=== PATIENT | female | born 1945 | race Caucasian/White ===

== ENCOUNTER 2020-04-16 21:51 | Inpatient (IN) | payer MEDICARE, OTHER ==
[~2020-04-16] VITALS: Ht 142.2 cm; Wt 40.4 kg
[~2020-04-16 21:51] MED LIST: ACETAMINOPHEN 650 MG/SUPP.RECT RC PRN
--- NOTE | 2020-04-16 22:03 | NUR ---
PATIENT INSURANCE CLERK AT BEDSIDE FOR LABS.
[2020-04-16 22:11] LABS: BASOPHILS # (AUTO) 0.1 /CMM (0.0-0.2); BASOPHILS % (AUTO) 0.5 % (0.0-2.0); HEMATOCRIT 37 % (33-45); HEMOGLOBIN 11.4 g/dL (11.5-14.8); LYMPHOCYTES # (AUTO) 0.8 /CMM (0.8-4.8); LYMPHOCYTES % (AUTO) 7.2 % (20.0-44.0); MEAN CORPUSCULAR HGB CONC 31 g/dl (31.0-36.0); MEAN CORPUSCULAR VOLUME 92 fL (82-100); MONOCYTES # (AUTO) 0.4 /CMM (0.1-1.30); MONOCYTES % (AUTO) 3.5 % (2.0-12.0); NEUTROPHILS # (AUTO) 9.5 /CMM (1.8-8.9); NEUTROPHILS % (AUTO) 88.8 % (43.0-81.0); PLATELET COUNT (AUTO) 237 /CMM (150-450); WHITE BLOOD COUNT (AUTO) 10.7 K/uL (4.3-11.0)
--- NOTE | 2020-04-16 22:18 | NUR ---
salome kent [phone]
--- NOTE | 2020-04-16 22:24 | NUR ---
PROSPER FROM SNF TO ER BED 5. AAOX0. EYES OPEN. RESPONDS TO TACTILE STIMULI BY STROKING SOLE OF THE FOOT. BED BOUND. BROUGHT IN FOR ALTERED MENTAL STATUS. 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 PT DOES NOT RESPOND WHEN BEING TALKED TO. VS ARE STABLE. RECTAL TEMP NOTED AT 99.4. URINE COLLECTED VIA CATH AND NOTED PYURIA, VERY SCANT IN AMOUNT. PT NOTED YIELD ANALYST SHUNT ON HER R HEAD. MD WAS AT THE BEDSIDE. ORDERS RECEIVED, NOTED AND CARRIED OUT. IV LINE ESTABLISHED ON L AC 20G. BLOOD DRAWN AND GIVEN TO TREATMENT SPECIALIST AT BEDSIDE. PT IS ON MONITOR.
[2020-04-16 22:30] LABS: ALANINE AMINOTRANSFERASE 14 U/L (12-78); ALBUMIN 2.2 g/dL (3.4-5.0); ALKALINE PHOSPHATASE 68 U/L (46-116); ASPARTATE AMINOTRANSFERASE 39 U/L (15-37); BILIRUBIN,DIRECT 0.1 mg/dL (0.0-0.2); BILIRUBIN,TOTAL 0.4 mg/dL (0.2-1.0); CALCIUM, SERUM 9.6 mg/dL (8.5-10.1); CARBON DIOXIDE 21 mmol/L (21-32); CHLORIDE 120 mmol/L (98-107); CREATININE 3.9 mg/dL (0.6-1.3); GLUCOSE 177 mg/dL (74-106); POTASSIUM 5.9 mmol/L (3.5-5.1); SODIUM SERUM 153 mmol/L (136-145); TOTAL PROTEIN, SERUM 7.9 g/dL (6.4-8.2)
--- NOTE | 2020-04-16 22:30 | NUR ---
PT TO CT ON ENRICO
[2020-04-16 22:35] LABS: UREA NITROGEN, BLOOD 107 mg/dL (7-18)
[2020-04-16] MEDS ORDERED: OMEP20CA15 PO (22:39)
[2020-04-16] MEDS ORDERED: ATOR40TA GT (22:39)
[2020-04-16] MEDS ORDERED: METF-442 PO (22:39)
[2020-04-16] MEDS ORDERED: ALEN70TA3 PO (22:39)
[2020-04-16] MEDS ORDERED: VIT500LI PO (22:39)
[2020-04-16] MEDS ORDERED: ASPI-1152 PO (22:39)
[2020-04-16] MEDS ORDERED: MIRT15TA GT (22:39)
[2020-04-16] MEDS ORDERED: FERR325T23 PO (22:39)
[2020-04-16] MEDS ORDERED: BENA40TA8 PO (22:39)
[2020-04-16] MEDS ORDERED: HALO2ORA PO (22:39)
[2020-04-16] MEDS ORDERED: MULT-447 PO (22:39)
[2020-04-16] MEDS ORDERED: INSU100I19 SQ (22:39)
[2020-04-16] MEDS ORDERED: AMIN30LI2 PO (22:39)
--- NOTE | 2020-04-16 22:45 | NUR ---
PT RETURNED FROM CT
--- NOTE | 2020-04-16 23:13 | NUR ---
PT STILL NOTED WITHOUT URINE. MADE AWARE. WILL COLLECT URINE ONCE PT PRODUCE
--- NOTE | 2020-04-16 23:25 | NUR ---
BED ASSIGNMENT 103
[2020-04-16] MEDS ORDERED: IV NS 0.9% 1,000 ML IV ONE (23:30)
[2020-04-16] MEDS ORDERED: IV NS 0.9% 500 ML BAG IV ONE (23:30)
[2020-04-16] MEDS ORDERED: ALBUTEROL SULFATE 8 GM HFA.AER.AD IH PRN (23:30)
--- NOTE | 2020-04-16 23:30 | NUR ---
REPORT GIVEN TO YUKI VALENZUELA FOR ZURDO
--- NOTE | 2020-04-16 23:31 | NUR ---
RECEIVED REPORT FROM BREEZY MIRZA FOR ZURDO.
--- NOTE | 2020-04-16 23:50 | NUR ---
SON UPDATED REGARDING PT
[2020-04-17] MEDS ORDERED: ACETAMINOPHEN 325 MG TABLET PO PRN
[2020-04-17] MEDS ORDERED: ONDANSETRON 4 MG TAB.RAPDIS SL PRN
[2020-04-17] MEDS ORDERED: ONDANSETRON HCL/PF 4 MG/2 ML VIAL IVP PRN
--- NOTE | 2020-04-17 00:35 | NUR ---
RN NOTES PATIENT TRANSFERRED FROM ER VIA [facility] WITH ACLS PROTOCOL. PATIENT IS AAXO. BREATHING NORMAL NO SOB NOTED RESPIRATION EVEN NON LABORED.NO S/S OF DISTRESS NOTED. ON ROOM AIR SATURATING 98%. TELE MONITOR READING SINUS RHYTHM. IV SITES LAC #20 INTACT AND FLUSHED WELL. SKIN ASSESSMENT DONE PICTURE TAKEN AND PLACED IN THE CHART. PATIENT CAME WITH NO BELONGING. WOUND CARE CONSULT ORDERED. COVID RAPID TEST CAME POSITIVE, PATIENT PLACED ON ISOLATION PRECAUTIONS. SAFETY MEASURES IN PLACED, BED LOW AND LOCKED POSITION, SIDE RAILS UP X2. CALL LIGHT WITHIN REACH. WILL CONT TO MONITOR FOR ZURDO.
[2020-04-17 00:48] VITALS: BP 133/86
[2020-04-17] MEDS ORDERED: ALENDRONATE 70 MG TABLET PO SCH (03:30)
[2020-04-17 04:00] VITALS: BP 113/60
[2020-04-17] MEDS ORDERED: AZITHROMYCIN 500 MG VIAL ONE (05:11)
[2020-04-17] MEDS: AZITHROMYCIN 500 MG in IV D5W 250 ML IV SCH (05:26)
--- NOTE | 2020-04-17 06:57 | NUR ---
RN NOTES PATENT RESTED COMFORTABLY IN BED NON VERBAL, AOXO. BREATHING NORMAL NO SOB NOTED, ON ROOM AIR SATURATING 99%. NO ACUTE CHANGES NOTED DURING SHIFT. BED BATH AND WOUND CARE DONE TOLERATED WELL. IV SITE LAC INTACT FLUIDS AND ATB RUNNING WELL. KEPT CLEAN DRY AND COMFORTABLE. ALL NEEDS ATTENDED. ALL SAFETY MEASURES IN PLACE. WILL ENDORSE TO AM NURSE FOR ZURDO.
[2020-04-17 07:28] LABS: ALANINE AMINOTRANSFERASE 15 U/L (12-78); ALKALINE PHOSPHATASE 54 U/L (46-116); ASPARTATE AMINOTRANSFERASE 38 U/L (15-37); BILIRUBIN,TOTAL 0.3 mg/dL (0.2-1.0); CALCIUM, SERUM 9.2 mg/dL (8.5-10.1); CARBON DIOXIDE 16 mmol/L (21-32); CHLORIDE 121 mmol/L (98-107); CREATININE 3.8 mg/dL (0.6-1.3); GLUCOSE 156 mg/dL (74-106); POTASSIUM 5.9 mmol/L (3.5-5.1); SODIUM SERUM 154 mmol/L (136-145); TOTAL PROTEIN, SERUM 7.1 g/dL (6.4-8.2)
[2020-04-17 07:30] LABS: UREA NITROGEN, BLOOD 106 mg/dL (7-18)
[2020-04-17 07:34] LABS: FERRITIN 564 ng/mL (8-388)
[2020-04-17 08:00] VITALS: BP 119/69
[2020-04-17] MEDS ORDERED: SODIUM POLYSTYRENE SULFONATE 15 G/60 ML BOTTLE PO ONE (08:00)
--- NOTE | 2020-04-17 08:00 | NUR ---
INDUCTION COORDINATION POWER ENGINEER NOTES PATIENT IN BED SLEEPING, ABLE TO AROUSE WHEN NAME CALLED. CONFUSED. ON DROPLET ISOLATION (COVID +). PATIENT HAS DILLON AND LEFT AC PERIPHERAL IV LINE NS RUNNING AT 75 ML HR. NO SOB OR DISTRESS NOTED AT THIS TIME. BED AT THE LOWEST POSITION LOCKED, CALL LIGHT WITHIN REACH, WILL CONTINUE TO MONITOR THE PATIENT.
[2020-04-17] MEDS ORDERED: FUROSEMIDE 20 MG/2 ML VIAL IV ONE (08:20)
--- NOTE | 2020-04-17 08:22 | NUR ---
WOUND CARE CONSULT: REVIEWED CHART, NURSING DOCUMENTATION AND PHOTO WHICH SHOWS INTACT DEEP TISSUE INJURY TO SACRUM, PRESENT ON ADMISSION. RECOMMENDATIONS MADE FOR SKIN PROTECTION. DISCUSSED WITH NURSING STAFF. MD IN AGREEMENT WITH PLAN OF CARE.
[2020-04-17] MEDS ORDERED: Z GUARD REMEDY 2 OZ OINT TP PRN (08:30)
[2020-04-17] MEDS: ASPIRIN 81 MG TAB.CHEW PO SCH (09:00)
[2020-04-17] MEDS ORDERED: ASPIRIN EC 81 MG TABLET.DR PO SCH (09:00)
[2020-04-17] MEDS ORDERED: OMEPRAZOLE 20 MG CAPSULE.DR PO SCH (09:00)
[2020-04-17] MEDS: FERROUS SULFATE (325 MG) 325 MG/TAB TABLET PO SCH (09:00)
[2020-04-17] MEDS: ASCORBIC ACID 500 MG TABLET PO SCH (09:00)
[2020-04-17] MEDS: MULTIVIT W/MINERALS 1 TAB TABLET PO SCH (09:00)
[2020-04-17] MEDS ORDERED: BENAZEPRIL HCL 20 MG TABLET PO SCH ×2 (09:00)
[2020-04-17] MEDS ORDERED: IV NS 0.9% 1,000 ML IV PRN (09:23)
[2020-04-17] MEDS ORDERED: SODIUM POLYSTYRENE SULF. PWD 15 GM UDC RC ONE (09:30)
[2020-04-17] MEDS ORDERED: SODIUM POLYSTYRENE SULFONATE 15 G/60 ML BOTTLE RC ONE (10:00)
[2020-04-17] MEDS: DEXAMETHASONE SOD PHOSPHATE 10 MG/ML VIAL IV SCH (10:06)
[2020-04-17] MEDS: Z GUARD REMEDY 2 OZ OINT TP SCH (10:09)
[2020-04-17] MEDS: ENOXAPARIN SODIUM 30 MG/0.3 ML DISP.SYRIN SQ SCH (10:09)
[2020-04-17] MEDS: Sodium Bicarbonate 100 MEQ in IV D5/0.45 NACL 1,000 ML IV PRN (10:11)
[2020-04-17] MEDS: IV NS 0.9% 1,000 ML IV SCH ×2 (10:30→18:30)
--- NOTE | 2020-04-17 11:15 | NUR ---
FURNACE CHARGER NOTES PER ELECTRODE CLEANER ALISIA HOLD NS FOR NOW.
[2020-04-17 12:00] VITALS: BP 123/65
[2020-04-17 15:34] LABS: CALCIUM, SERUM 8.7 mg/dL (8.5-10.1); CARBON DIOXIDE 12 mmol/L (21-32); CHLORIDE 119 mmol/L (98-107); CREATININE 3.4 mg/dL (0.6-1.3); GLUCOSE 232 mg/dL (74-106); POTASSIUM 5.1 mmol/L (3.5-5.1); SODIUM SERUM 147 mmol/L (136-145)
[2020-04-17 16:00] VITALS: BP 96/55
[2020-04-17 16:03] LABS: UREA NITROGEN, BLOOD 102 mg/dL (7-18)
--- NOTE | 2020-04-17 18:45 | NUR ---
NOVELTY DIPPER NOTES IV NS NOT ADMINISTRATED PER PICKLER HELPER NAI ORDER. ALSO PATIENT HAS NO ADEQUATE URINE OUTPUT. TOTAL VOLUME UT PUT 150 ML /DAY.
--- NOTE | 2020-04-17 18:55 | NUR ---
VALVE MECHANIC NOTES NOTIFY CARROTING MACHINE OPERATOR NAI FOR LOW URINE OUTPUT 150 ML/ DAY.
--- NOTE | 2020-04-17 19:05 | NUR ---
RN NOTE RECEIVED PATIENT IN BED RESTING WITH HOB ELEVATED. BREATHING EVEN AND NON LABORED, NO SOB NOTED AT THIS TIME. ON ROOM AIR, SATURATION IS 99% AT THIS TIME. PATIENT IS AWAKE, ALERT, CONFUSED. 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 ON ISOLATION FOR POSITIVE COVID. ON DILLON CATH, URINE IS CLEAR AND YELLOW IN COLOR. IV SITE ON LAC GAUGE 20 IS CLEAN, DRY, AND PATENT. ON IV FLUIDS D5 HALF NS WITH SODIUM BICARB RUNNING AT 75 ML/HR. IN NO APPARENT DISTRESS NOTED AT THIS TIME. CALL LIGHT IS WITHIN EASY REACH. WILL CONTINUE TO MONITOR.
--- NOTE | 2020-04-17 19:23 | NUR ---
QUALITY CONTROL ASSISTANT NOTES PATIENT IN BED SLEEPING, ALL NEEDS ATTENDED, MEDICATION ADMINISTRATED, NO SOB OR DISCOMFORT NOTED AT THIS TIME. NO ADEQUATE URINE OUTPUT TODAY (150ML/HR).REPORT GIVEN TO BILLING COORDINATOR NURSE FOR ZURDO.
[2020-04-17 20:00] VITALS: BP 132/99
[2020-04-17] MEDS: ATORVASTATIN 40 MG TABLET GT SCH (21:06)
[2020-04-18] VITALS (7 sets, daily range): BP systolic 138–161; BP diastolic 66–89
[2020-04-18] MEDS: Sodium Bicarbonate 100 MEQ in IV D5/0.45 NACL 1,000 ML IV PRN (01:41)
[2020-04-18] MEDS: AZITHROMYCIN 500 MG in IV D5W 250 ML IV SCH (04:23)
[2020-04-18 06:29] LABS: BASOPHILS % (AUTO) 0.2 % (0.0-2.0); HEMATOCRIT 34 % (33-45); HEMOGLOBIN 10.7 g/dL (11.5-14.8); LYMPHOCYTES # (AUTO) 0.5 /CMM (0.8-4.8); LYMPHOCYTES % (AUTO) 6.3 % (20.0-44.0); MEAN CORPUSCULAR HGB CONC 32 g/dl (31.0-36.0); MEAN CORPUSCULAR VOLUME 88 fL (82-100); MONOCYTES # (AUTO) 0.4 /CMM (0.1-1.30); MONOCYTES % (AUTO) 5.5 % (2.0-12.0); NEUTROPHILS # (AUTO) 6.8 /CMM (1.8-8.9); PLATELET COUNT (AUTO) 234 /CMM (150-450); WHITE BLOOD COUNT (AUTO) 7.8 K/uL (4.3-11.0)
--- NOTE | 2020-04-18 06:36 | NUR ---
RN NOTE PATIENT REMAINED STABLE THROUGHOUT THE NIGHT. NO SIGNIFICANT CHANGES NOTED. REPOSITIONED Q2H. ALL DUE MEDS GIVEN AND TOLERATED WELL. ALL NEEDS ATTENDED AND MET. PATIENT IS KEPT CLEAN, DRY, AND COMFORTABLE. IN NO APPARENT DISTRESS NOTED AT THIS TIME. WILL ENDORSE TO AM SHIFT RN FOR CONTINUATION OF CARE.
[2020-04-18 06:38] LABS: ALANINE AMINOTRANSFERASE 14 U/L (12-78); ALKALINE PHOSPHATASE 53 U/L (46-116); ASPARTATE AMINOTRANSFERASE 27 U/L (15-37); B-TYPE NATRIURETIC PEPTIDE 3204 PG/ML (0-125); BILIRUBIN,TOTAL 0.3 mg/dL (0.2-1.0); CALCIUM, SERUM 8.5 mg/dL (8.5-10.1); CARBON DIOXIDE 26 mmol/L (21-32); CHLORIDE 116 mmol/L (98-107); MAGNESIUM 3.1 mg/dL (1.8-2.4); PHOSPHORUS 4.4 mg/dL (2.5-4.9); POTASSIUM 4.7 mmol/L (3.5-5.1); SODIUM SERUM 151 mmol/L (136-145); TOTAL PROTEIN, SERUM 6.9 g/dL (6.4-8.2)
[2020-04-18 06:40] LABS: CREATINE KINASE, TOTAL 295 U/L (26-192)
[2020-04-18 06:56] LABS: GLUCOSE 393 mg/dL (74-106); UREA NITROGEN, BLOOD 96 mg/dL (7-18)
--- NOTE | 2020-04-18 08:00 | NUR ---
rn telephonic note received patient in the bed alert and awake with confusion. On room air Sat 99%. Pt on tele monitor SR HR 77 with evans catheter to gravity, yellow color urine noted with small amount. NPO Status awaiting for ST evaluation, DR Maurice notified Magnesium 3.1, K 4.7, Na 151, BUN 96, Creatinine 3.0. Aware pt on IV fluids with NA Bicarb ordered new IV fluids. Bed in lock and lowest position, safety measures observed, call light in reach, JAN Cordova at bedside aware that Blood Sugar was 393. No new orders given at this time. Will continue to monitor.
[2020-04-18] MEDS: DEXAMETHASONE SOD PHOSPHATE 10 MG/ML VIAL IV SCH (08:31)
[2020-04-18] MEDS: ENOXAPARIN SODIUM 30 MG/0.3 ML DISP.SYRIN SQ SCH (08:32)
[2020-04-18] MEDS: ASPIRIN 81 MG TAB.CHEW PO SCH (08:33)
[2020-04-18] MEDS: IV 1/2NS 1000 ML 1,000 ML IV PRN ×2 (08:35→20:26)
[2020-04-18] MEDS: FERROUS SULFATE (325 MG) 325 MG/TAB TABLET PO SCH (08:36)
[2020-04-18] MEDS: MULTIVIT W/MINERALS 1 TAB TABLET PO SCH (08:36)
[2020-04-18] MEDS: Z GUARD REMEDY 2 OZ OINT TP SCH (08:37)
[2020-04-18] MEDS: ASCORBIC ACID 500 MG TABLET PO SCH (08:37)
[2020-04-18] MEDS: ISOSORBIDE MONONITRATE (30MG) 30 MG TAB.SR.24H PO SCH (09:00)
--- NOTE | 2020-04-18 10:24 | NUR ---
EDGING CATCHER NOTE PER ST UNI DID NOT PASS SWALLOW EVAL ,KEEP NPO ALISIA BUILDING EQUIPMENT OPERATOR NOTIFIED OK TO HOLD PO MEDS AT THIS TIME AND WILL TRY SWALLOW EVAL TOMORROW WITH POSSIBLE NG TUBE PLACEMENT, WILL F\U
[2020-04-18 13:17] LABS: FERRITIN 522 ng/mL (8-388)
--- NOTE | 2020-04-18 13:48 | NUR ---
PROJECT MANAGER RETAIL NOTE ALL NEEDS ATTENDED ,ROUND MADE, CONT ON IVF ORDERED ,KEEP CLEAN DRY , WILL MONITOR
--- NOTE | 2020-04-18 15:00 | NUR ---
CLINICAL RESEARCH TECH NOTE ROUNDS MADE. ALL NEEDS ATTENDED NOT IN DISTRESS
--- NOTE | 2020-04-18 17:07 | NUR ---
BOTTLE INSPECTOR NOTE DR DENNIS NEUROLOGIST AT BEDSIDE WITH ORDER CT HEAD AWARE OF PATIENT ALTERED MENTAL STATUS
--- NOTE | 2020-04-18 18:22 | NUR ---
RESIDENTIAL CARPET INSTALLER NOTE PATIENT IS RESTING COMFORABLY WITH NO CHANGES. PATIENT ON ROOM AIR WITH NO SOB. AND CONTINOUS IV FLUIDS. STILL NPO STATUS. WAITING FOR CT HEAD. WILL CONTINUE TO MONITOR.
[2020-04-18] MEDS: ATORVASTATIN 40 MG TABLET GT SCH (22:00)
[2020-04-19] VITALS: BP 151/82
[2020-04-19] MEDS ORDERED: hydrALAZINE HCL IV 20 MG VIAL IV PRN
--- NOTE | 2020-04-19 03:59 | NUR ---
RN notes Patient in bed, intermittently sleeping, easy to arouse. No physical manifestation of pain or discomfort. In no apparent distress, breathing even and unlabored. On room air, tolerating well. For CT scan in AM. Head of bed should be elevated 40 degrees at all times. Patient is NPO, have an order for another swallow evaluation. If patient fails again for the third time, MD recommended to insert NGT for feeding Glucerna 1.2 at 15mls/hr with end goal of 30mls/hour. Kept clean and dry. Will continue to monitor.
[2020-04-19 04:00] VITALS: BP 157/81
[2020-04-19] MEDS: AZITHROMYCIN 500 MG in IV D5W 250 ML IV SCH (04:23)
[2020-04-19 06:50] LABS: ALANINE AMINOTRANSFERASE 14 U/L (12-78); ALBUMIN 1.7 g/dL (3.4-5.0); ALKALINE PHOSPHATASE 43 U/L (46-116); ASPARTATE AMINOTRANSFERASE 24 U/L (15-37); BILIRUBIN,TOTAL 0.3 mg/dL (0.2-1.0); CALCIUM, SERUM 8.3 mg/dL (8.5-10.1); CARBON DIOXIDE 26 mmol/L (21-32); CHLORIDE 117 mmol/L (98-107); CREATININE 2.1 mg/dL (0.6-1.3); GLUCOSE 242 mg/dL (74-106); MAGNESIUM 2.6 mg/dL (1.8-2.4); PHOSPHORUS 3.4 mg/dL (2.5-4.9); POTASSIUM 4.2 mmol/L (3.5-5.1); SODIUM SERUM 149 mmol/L (136-145); TOTAL PROTEIN, SERUM 5.9 g/dL (6.4-8.2); UREA NITROGEN, BLOOD 79 mg/dL (7-18)
[2020-04-19 06:52] LABS: BASOPHILS % (AUTO) 0.2 % (0.0-2.0); HEMATOCRIT 29 % (33-45); HEMOGLOBIN 9.5 g/dL (11.5-14.8); LYMPHOCYTES # (AUTO) 0.6 /CMM (0.8-4.8); LYMPHOCYTES % (AUTO) 7.7 % (20.0-44.0); MEAN CORPUSCULAR HGB CONC 32 g/dl (31.0-36.0); MEAN CORPUSCULAR VOLUME 90 fL (82-100); MONOCYTES # (AUTO) 0.5 /CMM (0.1-1.30); NEUTROPHILS # (AUTO) 6.4 /CMM (1.8-8.9); NEUTROPHILS % (AUTO) 86.1 % (43.0-81.0); PLATELET COUNT (AUTO) 198 /CMM (150-450); RED BLOOD CELL COUNT(AUTO) 3.27 MIL/uL (4.0-5.2); WHITE BLOOD COUNT (AUTO) 7.5 K/uL (4.3-11.0)
[2020-04-19] MEDS: IV 1/2NS 1000 ML 1,000 ML IV PRN (06:57)
[2020-04-19 08:00] VITALS: BP 153/94
--- NOTE | 2020-04-19 08:00 | NUR ---
BAR ATTENDANT NOTES OPENING PATIENT IN BED AWAKE, CONFUSED. ON DROPLET ISOLATION (COVID +). NPO.PATIENT HAS DILLON AND LEFT AC PERIPHERAL IV LINE NS RUNNING AT 75 ML HR. NO SOB OR DISTRESS NOTED AT THIS TIME. BED AT THE LOWEST POSITION LOCKED, CALL LIGHT WITHIN REACH, WILL CONTINUE TO MONITOR THE PATIENT.
[2020-04-19 08:07] LABS: PTH, INTACT 82 pg/mL (15-65)
[2020-04-19] MEDS: DEXAMETHASONE SOD PHOSPHATE 10 MG/ML VIAL IV SCH (08:48)
[2020-04-19] MEDS: ENOXAPARIN SODIUM 30 MG/0.3 ML DISP.SYRIN SQ SCH (08:49)
[2020-04-19] MEDS: ASCORBIC ACID 500 MG TABLET PO SCH (09:00)
[2020-04-19] MEDS: ISOSORBIDE MONONITRATE (30MG) 30 MG TAB.SR.24H PO SCH (09:00)
[2020-04-19] MEDS: ASPIRIN 81 MG TAB.CHEW PO SCH (09:00)
[2020-04-19] MEDS: MULTIVIT W/MINERALS 1 TAB TABLET PO SCH (09:00)
[2020-04-19] MEDS: FERROUS SULFATE (325 MG) 325 MG/TAB TABLET PO SCH (09:00)
--- NOTE | 2020-04-19 09:00 | NUR ---
DRAFTING LAYOUT WORKER NOTES ISOSORBIDE NOT GIVEN IN THE MORNING DUE TO NPO DIAGNOSIS, CYTOTECHNOLOGIST/CYTOLOGY SUPERVISOR ALISIA AWARE.
[2020-04-19] MEDS: Z GUARD REMEDY 2 OZ OINT TP SCH (09:03)
--- NOTE | 2020-04-19 09:44 | NUR ---
SOLAR INSTALLATION CREW SUPERVISOR NOTES (CT) WOOLEN SUITING SHRINKER INFORMED THAT HE WILL BE IN SAL[place] IN 2 HOURS TO TAKE THE PATIENT FOR THE PROCEDURE.
--- NOTE | 2020-04-19 11:57 | NUR ---
Please call Radiology at ext. [phone] HEAD W/O exam.
[2020-04-19 12:00] VITALS: BP 148/82
--- NOTE | 2020-04-19 14:07 | NUR ---
DIRECTOR MEDICAID NOTES (GT FEEDING AND NG TUBE INSERTION) CALLED DIETITIAN REGARDING CONSULTATION. DIETITIAN NOTIFIED THAT PATIENT WAS SEEN YESTERDAY AND THEY RECOMMEND GLUCERNA1.2 @ 15ML/HR X24 HR AND THE GOAL IS 30ML/HR X24.
--- NOTE | 2020-04-19 14:20 | NUR ---
FACTORY ASSEMBLER NOTES CALLED PATRICIA SKY (SON), EXPLAINED THAT HER MOM DID NOT PASS THE SWALLOW EVAL AND ACCOUNT SERVICES ASSOCIATE ALISIA ORDERED NG TUBE INSERTION. SON AGREED WITH THE PROCEDURE.
[2020-04-19 15:16] LABS: *SPE A/G RATIO 0.6 (0.7-1.7); *SPE ALBUMIN 2.2 g/dL (2.9-4.4); *SPE ALPHA-1-GLOBULIN 0.3 g/dL (0.0-0.4); *SPE ALPHA-2-GLOBULIN 1.1 g/dL (0.4-1.0); *SPE BETA GLOBULIN 0.9 g/dL (0.7-1.3); *SPE GLOBULIN, TOTAL 3.7 g/dL (2.2-3.9); *SPE M-SPIKE Not Observed g/dL (Not Observed); *SPEGAMMA GLOBULIN 1.5 g/dL (0.4-1.8)
--- NOTE | 2020-04-19 15:59 | NUR ---
CHAIN MAKER MACHINE NOTES PER CHEST XRAY; Appropriate enteric tube placement with no change in aeration. WILL START THE FEEDING AND PO MEDS.
[2020-04-19 16:00] VITALS: BP 150/79
--- NOTE | 2020-04-19 16:05 | NUR ---
DYE WEIGHER NOTES PATIENT WAS TAKEN TO CT. NG TUBE DISPLACEMENT WHEN AT CT.
[2020-04-19] MEDS: CLOPIDOGREL BISULFATE 75 MG TABLET PO SCH (16:06)
--- NOTE | 2020-04-19 16:49 | NUR ---
GIFT SHOP CLERK NOTES RE INSERTION OF NG TUBE ON LEFT NARE. PATIENT TOLERATED WELL.
--- NOTE | 2020-04-19 16:55 | NUR ---
MEDICAL HOSPITAL SALES NOTES PER FLUE TILE PRESS OPERATOR ALISIA, STOP THE 0.45% NS 75ML/HR AFTER FEEDING STARTED.
--- NOTE | 2020-04-19 17:47 | NUR ---
TECHNICAL SERVICES REPRESENTATIVE NOTES PER SECOND XRAY FINDINGS, NG TUBE IS IN STOMACH, WILL START THE FEEDING.
[2020-04-19] MEDS: GLUCERNA 1.2 1,000 ML BOTTLE NG PRN (18:39)
--- NOTE | 2020-04-19 19:23 | NUR ---
FLARE BREAKER NOTES PATIENT IN BED SLEEPING, AROUSES WHEN NAME CALLED, STILL ON DROPLET ISOLATION. ON NG TUBE GLUCERNA 1.2 15ML/HR. ALL NEEDS ATTENDED MEDS GIVEN, NO SOB OR DISCOMFORT NOTED AT THIS TIME. CALL LIGHT WITHIN REACH, BED AT THE LOWEST POSITION LOCKED. REPORT GIVEN TO CAMPUS POLICE OFFICER NURSE FOR ZURDO.
--- NOTE | 2020-04-19 19:45 | NUR ---
RN OPENING NOTE PT RECEIVED IN BED. PT MOANING TO DEEP PAIN. THERE IS NO S/S OF SOB. PT ON RA SATING 97%. PT HAS L NG TUBE GLUCERNA 1.2 RUNNING AT 15 ML/H. NG TUBE AUSCULTATED AND FLUSHED, NO RESIDUAL NOTED. DILLON DRAINING YELLOW URINE. PT HAS IV ACCESS LAC 20 G S/L, FLUSHES WELL AND INTACT. WILL CONTINUE TO MONITOR.
[2020-04-19 20:00] VITALS: BP 150/79
[2020-04-19] MEDS: ATORVASTATIN 40 MG TABLET GT SCH (22:52)
[2020-04-20] VITALS: BP 151/65
[2020-04-20 04:00] VITALS: BP 130/63
[2020-04-20] MEDS: AZITHROMYCIN 500 MG in IV D5W 250 ML IV SCH (05:19)
--- NOTE | 2020-04-20 06:46 | NUR ---
RN CLOSING NOTE PT REMAINED STABLE DURING MY SHIFT, WILL ENDORSE TO INCOMING SHIFT FOR ZURDO.
[2020-04-20 08:00] VITALS: BP 124/68
--- NOTE | 2020-04-20 08:35 | NUR ---
PHOTO STYLIST OPENING NOTES PATIENT IN BED A/OX0. ON DROPLET ISOLATION (COVID +). ON 20ML GLUCERNA1.2 TOLERATING WELL NO RESIDUAL NOTED FROM NG SITE. AUSCULTATED AND FLUSHED WELL. NG IN PLACE. BED AT THE LOWEST POSITION LOCKED. WILL CONTINUE TO MONITOR.
[2020-04-20] MEDS: ASPIRIN 81 MG TAB.CHEW PO SCH (09:28)
[2020-04-20] MEDS: ASCORBIC ACID 500 MG TABLET PO SCH (09:28)
[2020-04-20] MEDS: CLOPIDOGREL BISULFATE 75 MG TABLET PO SCH (09:28)
[2020-04-20] MEDS: MULTIVIT W/MINERALS 1 TAB TABLET PO SCH (09:28)
[2020-04-20] MEDS: ISOSORBIDE MONONITRATE (30MG) 30 MG TAB.SR.24H PO SCH (09:29)
[2020-04-20] MEDS: FERROUS SULFATE (325 MG) 325 MG/TAB TABLET PO SCH (09:30)
[2020-04-20] MEDS: ENOXAPARIN SODIUM 30 MG/0.3 ML DISP.SYRIN SQ SCH (09:31)
[2020-04-20] MEDS: Z GUARD REMEDY 2 OZ OINT TP SCH (09:32)
[2020-04-20 10:20] LABS: EOSINOPHILS % (AUTO) 0.1 % (0.0-6.0); HEMATOCRIT 28 % (33-45); LYMPHOCYTES # (AUTO) 0.6 /CMM (0.8-4.8); LYMPHOCYTES % (AUTO) 9.4 % (20.0-44.0); MEAN CORPUSCULAR HGB CONC 32 g/dl (31.0-36.0); MEAN CORPUSCULAR VOLUME 89 fL (82-100); MONOCYTES # (AUTO) 0.4 /CMM (0.1-1.30); MONOCYTES % (AUTO) 6.4 % (2.0-12.0); NEUTROPHILS # (AUTO) 5.4 /CMM (1.8-8.9); NEUTROPHILS % (AUTO) 84.1 % (43.0-81.0); PLATELET COUNT (AUTO) 188 /CMM (150-450); RED BLOOD CELL COUNT(AUTO) 3.13 MIL/uL (4.0-5.2); WHITE BLOOD COUNT (AUTO) 6.4 K/uL (4.3-11.0)
[2020-04-20 10:51] LABS: CALCIUM, SERUM 7.9 mg/dL (8.5-10.1); CARBON DIOXIDE 25 mmol/L (21-32); CHLORIDE 114 mmol/L (98-107); CREATININE 1.5 mg/dL (0.6-1.3); GLUCOSE 265 mg/dL (74-106); MAGNESIUM 2.5 mg/dL (1.8-2.4); PHOSPHORUS 2.2 mg/dL (2.5-4.9); POTASSIUM 3.6 mmol/L (3.5-5.1); SODIUM SERUM 144 mmol/L (136-145); UREA NITROGEN, BLOOD 67 mg/dL (7-18)
[2020-04-20 12:00] VITALS: BP 119/69
[2020-04-20] MEDS ORDERED: NEUTRA PHOS 1 POWD.PACKET PO ONE (14:15)
[2020-04-20 16:00] VITALS: BP 104/65
--- NOTE | 2020-04-20 19:38 | NUR ---
COMMUNICATIONS EQUIPMENT SUPERVISOR NOTES PATIENT IN BED RESTING COMFORTABLE. ALL NEEDS ATTENDED. MEDS GIVEN. TOLERATING THE NG TUBE FEEDING WELL. NO RESIDUAL NOTED AT THIS TIME. NO SOB OR DISCOMFORT NOTED. STILL ON COVID 19 ISOLATION. CALL LIGHT WITHIN REACH. REPORT GIVEN TO BIG DATA SOFTWARE ENGINEER NURSE FOR ZURDO.
[2020-04-20 20:00] VITALS: BP 132/73
--- NOTE | 2020-04-20 20:32 | NUR ---
RN OPENING NOTES: PATIENT IN BED, ASLEEP, EASILY AROUSABLE. NO RESPIRATORY DISTRESS. ON RA, TOLERATING WELL. NO S/S OF PAIN. ON NGT FEEDING, TOLERATING WELL, NO RESIDUAL. ON DELIVERY CREW MEMBER, SINUS EMERALD 50s, ASYMPTOMATIC AT THIS TIME. LEFT AC G20 C/D/I; FLUSHING WELL. SALINE LOCKED. DILLON INTACT AND PATENT. SAFETY PRECAUTIONS IMPLEMENTED. BED LOCKED, ALARM ON, LOW POSITION. CALL LIGHT WITHIN REACH. WILL CONT. TO MONITOR.
[2020-04-20] MEDS: ATORVASTATIN 40 MG TABLET GT SCH (22:00)
[2020-04-21] VITALS: BP_SYST 131; BP_SYST 136; BP_DIAS 72; BP_DIAS 77
[2020-04-21 04:00] VITALS: BP 141/69
[2020-04-21 06:47] LABS: EOSINOPHILS % (AUTO) 0.5 % (0.0-6.0); HEMATOCRIT 29 % (33-45); HEMOGLOBIN 9.5 g/dL (11.5-14.8); LYMPHOCYTES # (AUTO) 0.7 /CMM (0.8-4.8); LYMPHOCYTES % (AUTO) 10.8 % (20.0-44.0); MEAN CORPUSCULAR HGB CONC 33 g/dl (31.0-36.0); MEAN CORPUSCULAR VOLUME 88 fL (82-100); MONOCYTES # (AUTO) 0.4 /CMM (0.1-1.30); NEUTROPHILS % (AUTO) 81.7 % (43.0-81.0); PLATELET COUNT (AUTO) 176 /CMM (150-450); RED BLOOD CELL COUNT(AUTO) 3.27 MIL/uL (4.0-5.2); WHITE BLOOD COUNT (AUTO) 6.1 K/uL (4.3-11.0)
[2020-04-21 06:52] LABS: CALCIUM, SERUM 8.1 mg/dL (8.5-10.1); CARBON DIOXIDE 25 mmol/L (21-32); CHLORIDE 115 mmol/L (98-107); CREATININE 1.4 mg/dL (0.6-1.3); GLUCOSE 208 mg/dL (74-106); MAGNESIUM 2.4 mg/dL (1.8-2.4); PHOSPHORUS 2.6 mg/dL (2.5-4.9); POTASSIUM 3.9 mmol/L (3.5-5.1); SODIUM SERUM 149 mmol/L (136-145); UREA NITROGEN, BLOOD 59 mg/dL (7-18)
--- NOTE | 2020-04-21 07:16 | NUR ---
RN CLOSING NOTES: NO ACUTE DISTRESS DURING SHIFT. IN STABLE CONDITION. CONT. ON NEUROCHECKS. ENDORSED TO AM RN FOR CONTINUITY OF CARE.
--- NOTE | 2020-04-21 07:40 | NUR ---
RN SALBADOR OPENING NOTE RECEIVED PT IN BED, AWAKE, ALERT AND ORIENTED X2. PT IS PRIMARY CROATIAN SPEAKER, PT IS ON ROOM AIR SATURATING AT 95% AT THIS TIME, PT ON TELE MONITORING WITH SB RHYTHM NOTED AT THIS TIME, PT HAS A DILLON THAT IS INTACT AND FLOWING FREELY VIA GRAVITY, OT HAS A LEFT NARE NGT TUBE INTACT WITH 30ML/HR, PT HAS A LEFT AC 20' SALINE LOCK, INTACT AND FLUSHED WELL, PT ON NEURO MONITORING Q4 HOURS PER DR. COPELAND ORDERS, BED LOCKED AND IN LOWEST POSITION, HOB ELEVATED TOLERATED, CALL LIGHT WITHIN REACH AND FUNCTIONING, WILL CONTINUE TO MONITOR AND ASSESS PT.
[2020-04-21 08:00] VITALS: BP 163/72
[2020-04-21] MEDS: ASCORBIC ACID 500 MG TABLET PO SCH (09:25)
[2020-04-21] MEDS: CLOPIDOGREL BISULFATE 75 MG TABLET PO SCH (09:25)
[2020-04-21] MEDS: MULTIVIT W/MINERALS 1 TAB TABLET PO SCH (09:25)
[2020-04-21] MEDS: FERROUS SULFATE (325 MG) 325 MG/TAB TABLET PO SCH (09:25)
[2020-04-21] MEDS: ASPIRIN 81 MG TAB.CHEW PO SCH (09:25)
[2020-04-21] MEDS: ENOXAPARIN SODIUM 30 MG/0.3 ML DISP.SYRIN SQ SCH (09:26)
[2020-04-21] MEDS: ISOSORBIDE MONONITRATE (30MG) 30 MG TAB.SR.24H PO SCH (09:26)
[2020-04-21] MEDS: Z GUARD REMEDY 2 OZ OINT TP SCH (09:31)
[2020-04-21 12:00] VITALS: BP 113/59
[2020-04-21 16:00] VITALS: BP 140/73
--- NOTE | 2020-04-21 18:45 | NUR ---
RN SALBADOR CLOSING NOTE PT IS CURRENTLY IN BED, AWAKE AND ALERT x1, PT IS ALBANIAN SPEAKING, PT IS ON ROM AIR SATURATING AT 98% WITH NO SOB OR ACUTE DISTRESS NOTED, PT ON NGT TUBE FEEING AT 30ML/HR, TOLERATED WELL, HOB ELEVATED AT ALL TIMES TOLERATED, LAC INTACT AND PATENT, PT HAS SACRAL REDNESS WITH FRAGILE THIN SKIN, BED IN LOWEST POSTIOON AND LOCKED, CALL LIGHT WITHIN REACH AND FUNCTIONING, WILL ENDORSE TO NEXT SHIFT NURSE FOR ZURDO
[2020-04-21 20:00] VITALS: BP_SYST 140; BP_SYST 147; BP_DIAS 73; BP_DIAS 83
[2020-04-21] MEDS: ATORVASTATIN 40 MG TABLET GT SCH (22:10)
[2020-04-22] VITALS: BP 121/77
--- NOTE | 2020-04-22 03:31 | NUR ---
RN notes In ed resting comfortably with no respiratory distress noted. Breathing even and unlabored. On room air, tolerating well. No significant change of condition. Kept clean and dry. Will endorse to next shift for continuity of care
[2020-04-22 04:00] VITALS: BP 140/74
[2020-04-22 07:01] LABS: BASOPHILS % (AUTO) 0.1 % (0.0-2.0); EOSINOPHILS % (AUTO) 0.2 % (0.0-6.0); HEMATOCRIT 31 % (33-45); LYMPHOCYTES # (AUTO) 0.9 /CMM (0.8-4.8); LYMPHOCYTES % (AUTO) 5.9 % (20.0-44.0); MEAN CORPUSCULAR HGB CONC 33 g/dl (31.0-36.0); MEAN CORPUSCULAR VOLUME 88 fL (82-100); MONOCYTES # (AUTO) 0.9 /CMM (0.1-1.30); MONOCYTES % (AUTO) 5.7 % (2.0-12.0); NEUTROPHILS # (AUTO) 13.5 /CMM (1.8-8.9); NEUTROPHILS % (AUTO) 88.1 % (43.0-81.0); PLATELET COUNT (AUTO) 174 /CMM (150-450); RED BLOOD CELL COUNT(AUTO) 3.49 MIL/uL (4.0-5.2); WHITE BLOOD COUNT (AUTO) 15.3 K/uL (4.3-11.0)
[2020-04-22 07:10] LABS: ALBUMIN 1.9 g/dL (3.4-5.0); BILIRUBIN,TOTAL 0.5 mg/dL (0.2-1.0); CALCIUM, SERUM 8.4 mg/dL (8.5-10.1); CREATININE 1.3 mg/dL (0.6-1.3); MAGNESIUM 2.4 mg/dL (1.8-2.4); PHOSPHORUS 1.7 mg/dL (2.5-4.9); TOTAL PROTEIN, SERUM 6.1 g/dL (6.4-8.2)
--- NOTE | 2020-04-22 07:30 | NUR ---
RN/SALBADOR RECEIVED PATIENT IN BED. NO ACUTE DISTRESS NOTED. PATIENT ALERT & ORIENTED X1-2, WITH CONFUSION, NONVERBAL AT THIS TIME. PATIENT ON ROOM AIR, SATURATING WELL AT 98%. PATIENT ON MACHINIST INSTRUCTOR, NORMAL SINUS RHYTHM NOTED. PATIENT NG-TUBE IN PLACE, CHECKED FOR PLACEMENT WITH STETHESCOPE, FLUSHED WELL. PATIENT LEFT ANTECUBITAL IV ACCESS INTACT, PATENT, FLUSHED WELL. PATIENT SAFETY MAINTAINED. CALL LIGHT WITHIN REACH. WILL CONTINUE TO MONITOR.
[2020-04-22 08:00] VITALS: BP 157/76
[2020-04-22] MEDS: ASCORBIC ACID 500 MG TABLET PO SCH (08:42)
[2020-04-22] MEDS: FERROUS SULFATE (325 MG) 325 MG/TAB TABLET PO SCH (08:42)
[2020-04-22] MEDS: CLOPIDOGREL BISULFATE 75 MG TABLET PO SCH (08:43)
[2020-04-22] MEDS: ISOSORBIDE MONONITRATE (30MG) 30 MG TAB.SR.24H PO SCH (08:43)
[2020-04-22] MEDS: MULTIVIT W/MINERALS 1 TAB TABLET PO SCH (08:43)
[2020-04-22] MEDS: ASPIRIN 81 MG TAB.CHEW PO SCH (08:43)
[2020-04-22] MEDS: ENOXAPARIN SODIUM 30 MG/0.3 ML DISP.SYRIN SQ SCH (08:44)
[2020-04-22] MEDS: Z GUARD REMEDY 2 OZ OINT TP SCH (08:44)
[2020-04-22 12:00] VITALS: BP 143/82
[2020-04-22] MEDS ORDERED: NEUTRA PHOS 1 POWD.PACKET PO ONE (13:30)
[2020-04-22 16:00] VITALS: BP 133/74
--- NOTE | 2020-04-22 18:25 | NUR ---
RN/SALBADOR PATIENT IN BED. NO ACUTE DISTRESS NOTED. PATIENT ALERT & ORIENTED X1, WITH CONFUSION, NONVERBAL AT THIS TIME. PATIENT ON ROOM AIR, SATURATING WELL AT 99%. PATIENT ON CARCASS WASHER, NORMAL SINUS RHYTHM NOTED. PATIENT NG-TUBE IN PLACE, FLUSHED WELL. PATIENT LEFT ANTECUBITAL IV ACCESS INTACT, PATENT, FLUSHED WELL. PATIENT SAFETY MAINTAINED. CALL LIGHT WITHIN REACH. WILL ENDORSE PLAN OF CARE TO ONCOMING NURSE FOR CONTINUITY OF CARE.
[2020-04-22 20:00] VITALS: BP 121/63
[2020-04-22] MEDS: ATORVASTATIN 40 MG TABLET GT SCH (23:41)
[2020-04-23] VITALS: BP 145/77
[2020-04-23 04:00] VITALS: BP 145/75
[2020-04-23] MEDS: GLUCERNA 1.2 1,000 ML BOTTLE NG PRN (04:31)
[2020-04-23 07:06] LABS: EOSINOPHILS % (AUTO) 0.7 % (0.0-6.0); HEMATOCRIT 28 % (33-45); HEMOGLOBIN 9.2 g/dL (11.5-14.8); LYMPHOCYTES # (AUTO) 0.5 /CMM (0.8-4.8); LYMPHOCYTES % (AUTO) 4.1 % (20.0-44.0); MEAN CORPUSCULAR HGB CONC 33 g/dl (31.0-36.0); MEAN CORPUSCULAR VOLUME 88 fL (82-100); MONOCYTES # (AUTO) 0.7 /CMM (0.1-1.30); NEUTROPHILS # (AUTO) 10.1 /CMM (1.8-8.9); NEUTROPHILS % (AUTO) 89.2 % (43.0-81.0); PLATELET COUNT (AUTO) 144 /CMM (150-450); RED BLOOD CELL COUNT(AUTO) 3.21 MIL/uL (4.0-5.2); WHITE BLOOD COUNT (AUTO) 11.3 K/uL (4.3-11.0)
[2020-04-23 07:20] LABS: CREATININE 1.3 mg/dL (0.6-1.3); PHOSPHORUS 2.5 mg/dL (2.5-4.9); POTASSIUM 3.5 mmol/L (3.5-5.1)
--- NOTE | 2020-04-23 07:21 | NUR ---
RN OPENING NOTES: RECEIVED PATIENT IN BED.PT DOES NOT HAVE ANY SIGNS OF RESPIRATORY DISTRESS, NO SIGNS OF DIFFICULTY BREATHING. PT BREATHING EVEN AND UNLABORED. NO SIGNS OF ANY PAIN. PT IS ON RA 985 O2. PT IS A/O X 2. LAC#20. PTS SAFETY MEASURES APPLIED, CALL LIGHT WITHIN REACH. WILL CONTINUE TO MONITOR CLOSELY.
[2020-04-23 08:00] VITALS: BP 153/78
[2020-04-23] MEDS: ASPIRIN 81 MG TAB.CHEW PO SCH (08:21)
[2020-04-23] MEDS: CLOPIDOGREL BISULFATE 75 MG TABLET PO SCH (08:21)
[2020-04-23] MEDS: glipiZIDE 5 MG TABLET PO SCH (08:22)
[2020-04-23] MEDS: FERROUS SULFATE (325 MG) 325 MG/TAB TABLET PO SCH (08:22)
[2020-04-23] MEDS: ISOSORBIDE MONONITRATE (30MG) 30 MG TAB.SR.24H PO SCH (08:22)
[2020-04-23] MEDS: MULTIVIT W/MINERALS 1 TAB TABLET PO SCH (08:22)
[2020-04-23] MEDS: ENOXAPARIN SODIUM 30 MG/0.3 ML DISP.SYRIN SQ SCH (08:23)
[2020-04-23] MEDS: ASCORBIC ACID 500 MG TABLET PO SCH (08:24)
[2020-04-23] MEDS: Z GUARD REMEDY 2 OZ OINT TP SCH (08:42)
--- NOTE | 2020-04-23 11:10 | NUR ---
RN OPENING NOTES: RECEIVED PATIENT FROM HANNA MIRZA .PT DOES NOT HAVE ANY SIGNS OF RESPIRATORY DISTRESS, NO SIGNS OF DIFFICULTY BREATHING. PT IS ON RA 985 O2. PT IS A/O X 2. LAC#20. PTS SAFETY MEASURES APPLIED, CALL LIGHT WITHIN REACH. WILL CONTINUE TO MONITOR CLOSELY.
[2020-04-23 12:00] VITALS: BP 123/67
--- NOTE | 2020-04-23 13:32 | NUR ---
SALBADOR RN NOTES PER ORDER FOR CONSENT FORM. GOT THE CONSENT FORM FROM FAMILY MEMBER SON PATRICIA FOR PEG , ANESTHESIA, AND BLOOD TRANSFUSION IN CASE OF BLEEDING .DR ROLAND CALLED TO STOP TUBE FEEDING AFTER MIDNIGHT AND X RAY AFTER PEG PLACEMENT. WILL ENDORSE TO NIGHTSHIFT NURSE
[2020-04-23 16:00] VITALS: BP 122/69
--- NOTE | 2020-04-23 17:33 | NUR ---
RN CLOSING NOTES: PT IN BED SLEEPING DID NOT SHOW ANY SIGNS OF RESPIRATORY DISTRESS THROUGHOUT MY SHIFT, NO SIGNS OF ANY PAIN, OR DIFFICULTY BREATHING. PT ON TELE MONITOR SR. PT IS ON RA 98%. NGT IN PLACE. PT A/OX2 CITIZEN OF [place] SPEAKING. LAC#20. SAFETY MEASURES OBTAINED, CALL LIGHT WITHIN REACH, WILL ENDORE TO THE PM NURSE.
[2020-04-23 20:00] VITALS: BP 122/69
--- NOTE | 2020-04-23 20:30 | NUR ---
TELE/RN OPENING NOTES RECEIVED REPORT FROM ZHOU MIRZA, PATIENT IS RESTING IN BED. PATIENT IS ALERT AND ORIENTED X 1, ABLE TO OPEN EYES. NO SIGNS OF SOB OR RESPIRATORY DISTRESS. NO SIGNS OF PAIN AT THE MOMENT. PATIENT ON TELE MONITOR SR. PATIENT ON ROOM AIR 98%. NGT IN PLACE. PATIENT HAS LAC#20 INTACT AND FLUSHING WELL. SAFETY MEASURES ARE IN PLACE, BED IS LOCKED AND PLACED IN THE LOWEST POSITION, CALL LIGHT WITHIN REACH. WILL CONTINUE TO MONITOR PATIENT THROUGH OUT SHIFT.
[2020-04-23] MEDS: ATORVASTATIN 40 MG TABLET GT SCH (22:22)
[2020-04-24] VITALS: BP 106/54
[2020-04-24 04:00] VITALS: BP 113/49
--- NOTE | 2020-04-24 06:15 | NUR ---
TELE/RN CLOSING NOTES PATIENT IS IN BED RESTING. PATIENT IS ALERT AND ORIENTED X 1, OPENS EYES. NO SIGNS OF SOB OR RESPIRATORY DISTRESS NOTED. PATIENT IS IN A COMFORTABLE POSITION, NO SIGNS OF PAIN. PATIENT TELE READING SR. DILLON CATH IS IN PLACE DRAINING YELLOW URINE OUTPUT 120ML. PATIENT HAS BEEN NPO SINCE 0000HRS MIDNIGHT. PATIENT HAS LEFT AC # 20 G INTACT AND FLUSHING WELL. ALL OF PATIENT NEEDS HAVE BEEN MET DURING SHIFT. SAFETY MEASURES ARE IN PLACE, BED IS LOCKED AND PLACED IN THE LOWEST POSITION, CALL LIGHT WITHIN REACH. WILL ENDORSE CARE TO DAY SHIFT.
[2020-04-24 06:47] LABS: BASOPHILS % (AUTO) 0.2 % (0.0-2.0); EOSINOPHILS % (AUTO) 0.4 % (0.0-6.0); HEMATOCRIT 28 % (33-45); HEMOGLOBIN 8.9 g/dL (11.5-14.8); LYMPHOCYTES # (AUTO) 0.7 /CMM (0.8-4.8); LYMPHOCYTES % (AUTO) 5.9 % (20.0-44.0); MEAN CORPUSCULAR HGB CONC 31 g/dl (31.0-36.0); MEAN CORPUSCULAR VOLUME 93 fL (82-100); MONOCYTES # (AUTO) 0.9 /CMM (0.1-1.30); MONOCYTES % (AUTO) 7.7 % (2.0-12.0); NEUTROPHILS # (AUTO) 9.5 /CMM (1.8-8.9); NEUTROPHILS % (AUTO) 85.8 % (43.0-81.0); PLATELET COUNT (AUTO) 112 /CMM (150-450); RED BLOOD CELL COUNT(AUTO) 3.05 MIL/uL (4.0-5.2); WHITE BLOOD COUNT (AUTO) 11.1 K/uL (4.3-11.0)
[2020-04-24 06:57] LABS: ALANINE AMINOTRANSFERASE 15 U/L (12-78); ALBUMIN 1.5 g/dL (3.4-5.0); ALKALINE PHOSPHATASE 75 U/L (46-116); ASPARTATE AMINOTRANSFERASE 26 U/L (15-37); BILIRUBIN,TOTAL 0.4 mg/dL (0.2-1.0); CALCIUM, SERUM 8.3 mg/dL (8.5-10.1); CARBON DIOXIDE 27 mmol/L (21-32); CHLORIDE 115 mmol/L (98-107); CREATININE 1.6 mg/dL (0.6-1.3); GLUCOSE 308 mg/dL (74-106); MAGNESIUM 2.5 mg/dL (1.8-2.4); PHOSPHORUS 2.4 mg/dL (2.5-4.9); SODIUM SERUM 148 mmol/L (136-145); TOTAL PROTEIN, SERUM 5.8 g/dL (6.4-8.2); UREA NITROGEN, BLOOD 52 mg/dL (7-18)
--- NOTE | 2020-04-24 07:27 | NUR ---
SHOE STITCHER OPENING NOTES PATIENT IN BED RESTING COMFORTABLY. PATIENT IN NO ACUTE DISTRESS. NO SOB NOTED. PATIENT BREATHING IS EVEN AND UNLABORED. PATIENT ON CARDIAC MONITORING READING SINUS RHYTHM HR 65. PATIENT MAINTAINED NPO STATUS. PATIENT BED ALARM IS ON. SAFETY PRECAUTIONS IN PLACE. PATIENT BED IS LOCKED AND IN LOWEST POSITION. CALL LIGHT WITHIN REACH. WILL CONTINUE TO MONITOR.
[2020-04-24 08:00] VITALS: BP 103/54
[2020-04-24] MEDS: MULTIVIT W/MINERALS 1 TAB TABLET PO SCH (08:55)
[2020-04-24] MEDS: ASCORBIC ACID 500 MG TABLET PO SCH (08:56)
[2020-04-24] MEDS: FERROUS SULFATE (325 MG) 325 MG/TAB TABLET PO SCH (08:56)
[2020-04-24] MEDS: glipiZIDE 5 MG TABLET PO SCH (08:56)
[2020-04-24] MEDS: Z GUARD REMEDY 2 OZ OINT TP SCH (08:57)
[2020-04-24] MEDS: ISOSORBIDE MONONITRATE (30MG) 30 MG TAB.SR.24H PO SCH (08:57)
[2020-04-24] MEDS: ASPIRIN 81 MG TAB.CHEW PO SCH (08:59)
[2020-04-24] MEDS: CLOPIDOGREL BISULFATE 75 MG TABLET PO SCH (08:59)
--- NOTE | 2020-04-24 08:59 | NUR ---
MIRTHA MIRZA NOTE HELD ASPIRIN AND PLAVIX AM DOSE FOR PEG PLACEMENT AND EGD TODAY. Addendum: 04/24/20 at 901 by DONTA ENGLE RN MIRTHA MIRZA NOTE HELD ASPIRIN, LOVENOX, AND PLAVIX AM DOSE FOR PEG PLACEMENT AND EGD TODAY.
[2020-04-24] MEDS: ENOXAPARIN SODIUM 30 MG/0.3 ML DISP.SYRIN SQ SCH (09:00)
[2020-04-24] MEDS ORDERED: CLOP75TA15 PO (10:24)
[2020-04-24 12:00] VITALS: BP 100/54
[2020-04-24] MEDS ORDERED: K PHOS NEUTRAL 250 MG TABLET PO ONE (13:00)
--- NOTE | 2020-04-24 14:25 | NUR ---
OR CANCELLED PEG NEED TO BE OFF BLOOD THINNER FOR 5 DAYS,DR. DOSS AWARE AND STILL OK TO DISCHARGE WITH BARB MENENDEZ NOTIFIED.
--- NOTE | 2020-04-24 15:36 | NUR ---
per dr. reis discontinue plavix patient for peg in 5 days,primary rn aware,ady from [facility] notified.
[2020-04-24 16:00] VITALS: BP 149/84
--- NOTE | 2020-04-24 18:36 | NUR ---
BOOKKEEPING ASSISTANT NOTE PATIENT MEDICALLY CLEARED FOR DISCHARGE. PATIENT IN NO ACUTE DISTRESS. NO SOB NOTED. PATIENT BREATHING IS EVEN AND UNLABORED. PATIENT WITH NG TUBE PATENT AND INTACT. SKIN ASSESSED, PICTURE IN CHART. DC INSTRUCTIONS PROVIDED. PATIENT UNABLE TO COMPREHEND. PATIENT WITH BELONGINGS WITH HER, BELONGINGS LIST AND DC PAPERWORK SIGNED BY TWO NURSES. REPORT GIVEN TO JORDAN MIRZA AT [facility]. INSTRUCTED NOT TO GIVE PLAVIX FOR AT LEAST 5 DAYS DUE TO PATIENT NEEDING TO RETURN FOR PEG PLACEMENT AND FOLLOW UP WOUND TREATMENT PER CHARGE NURSE PRABHU. PATIENT TURNED AND REPOSITIONED Q2H. PATIENT KEPT CLEAN, DRY AND COMFORTABLE THROUGHOUT SHIFT. DILLON CATHETER HANGING TO GRAVITY AND DRAINING CLEAR YELLOW URINE. IV REMOVED. ID BAND REMOVED. PATIENT GOING BY AMBULANCE WITH TWO METAL RECLAMATION KETTLE TENDER. MD AWARE OF DISCHARGE.
== END 2020-04-24 18:40 | DRG 177 ==
LOC: ER 21:51 → TELE1 23:39
PROVIDERS: ADMIT Nurse Practitioner Acute Care; ATTEND Internal Medicine
DX: U07.1 COVID-19 (principal); J12.89 Other viral pneumonia; G93.41 Metabolic encephalopathy; E43 Unspecified severe protein-calorie malnutrition; N17.0 Acute kidney failure with tubular necrosis; I21.A1 Myocardial infarction type 2; I63.433 Cerebral infarction due to embolism of bilateral posterior cerebral arteries; D68.69 Other thrombophilia; E87.0 Hyperosmolality and hypernatremia; E88.09 Other disorders of plasma-protein metabolism, not elsewhere classified; R40.2362 Coma scale, best motor response, obeys commands, at arrival to emergency department; R40.2142 Coma scale, eyes open, spontaneous, at arrival to emergency department; R40.2242 Coma scale, best verbal response, confused conversation, at arrival to emergency department; E11.65 Type 2 diabetes mellitus with hyperglycemia; E83.39 Other disorders of phosphorus metabolism; E83.42 Hypomagnesemia; K21.9 Gastro-esophageal reflux disease without esophagitis; N18.9 Chronic kidney disease, unspecified; R13.10 Dysphagia, unspecified; Z74.01 Bed confinement status; F32.9 Major depressive disorder, single episode, unspecified; E87.5 Hyperkalemia; M62.50 Muscle wasting and atrophy, not elsewhere classified, unspecified site; Z68.20 Body mass index [BMI] 20.0-20.9, adult; M06.9 Rheumatoid arthritis, unspecified; Z79.84 Long term (current) use of oral hypoglycemic drugs; E11.22 Type 2 diabetes mellitus with diabetic chronic kidney disease; F03.90 Unspecified dementia, unspecified severity, without behavioral disturbance, psychotic disturbance, mood disturbance, and anxiety; I12.9 Hypertensive chronic kidney disease with stage 1 through stage 4 chronic kidney disease, or unspecified chronic kidney disease; Z98.2 Presence of cerebrospinal fluid drainage device
CPT/HCPCS: 36415; 70450-TC; 71045-TC; 76770-TC; 80048-TC; 80053-TC; 80076-TC; 82140-TC; 82550-TC; 82553; 82728-TC; 83605-TC; 83615-TC; 83735-TC; 83880; 83970; 84100-TC; 84155; 84165; 84484-TC; 85025-TC; 85378-TC; 85610-TC; 85730-TC; 86140-TC; 86803; 86850-TC; 87040-TC; 87081-TC; 87806; 87899; 92526; 92611-TC; G0378; J0456; J1100; J1650; J1940; J3490; J7030; J7060

== ENCOUNTER 2020-04-30 09:29 | Inpatient (IN) | payer MEDICARE, OTHER ==
[~2020-04-30] VITALS: Ht 157.5 cm; Wt 48.9 kg
[~2020-04-30 09:29] MED LIST changes: -ACETAMINOPHEN 650 MG/SUPP.RECT RC PRN; +ALEN70TA3 NG; +AMIN30LI2 NG; +ASPI-1420 NG; +ATOR40TA NG; +BENA40TA8 NG; +CLOP75TA15 PO; +FERR325T23 NG; +HALO2ORA NG; +INSU100I19 SQ; +METF-442 NG; +MIRT15TA NG; +MULT-447 NG; +OMEP20CA15 NG; +VIT500LI NG
[2020-04-30 09:59] LABS: APPEARANCE,URINE Slightly Cloudy (CLEAR); BASOPHILS % (AUTO) 0.4 % (0.0-2.0); BILIRUBIN,URINE Negative (NEGATIVE); BLOOD, URINE Small Ery/uL (NEGATIVE); COLOR,URINE Yellow (YELLOW); EOSINOPHILS % (AUTO) 1.9 % (0.0-6.0); HEMATOCRIT 27 % (33-45); HEMOGLOBIN 8.4 g/dL (11.5-14.8); KETONES,URINE Negative (NEGATIVE); LEUKOCYTE ESTERASE ,URINE Trace (NEGATIVE); LYMPHOCYTES % (AUTO) 15.9 % (20.0-44.0); MEAN CORPUSCULAR HGB CONC 32 g/dl (31.0-36.0); MEAN CORPUSCULAR VOLUME 91 fL (82-100); MONOCYTES # (AUTO) 0.3 /CMM (0.1-1.30); MONOCYTES % (AUTO) 4.2 % (2.0-12.0); NEUTROPHILS % (AUTO) 77.6 % (43.0-81.0); NITRITE, URINE Positive (NEGATIVE); PH,URINE 6.5 (5.0-8.0); PLATELET COUNT (AUTO) 255 /CMM (150-450); PROTEIN,URINE >=300 mg/dl (NEGATIVE); UGLUCOSE Negative (NEGATIVE); WHITE BLOOD COUNT (AUTO) 6.5 K/uL (4.3-11.0)
[2020-04-30 10:03] LABS: BACTERIA,URINE 1+ /HPF (None Seen); SQUAMOUS EPITHELIAL CELL,UR Few /HPF (None Seen)
--- NOTE | 2020-04-30 10:06 | NUR ---
sent by pmd for GT placement. NGT on the right nares. Connected to the monitor and pulse ox. kept comfortable, will continue to monitor accordingly.
[2020-04-30 10:10] LABS: MAGNESIUM 2.7 mg/dL (1.8-2.4); PHOSPHORUS 2.7 mg/dL (2.5-4.9)
[2020-04-30] MEDS ORDERED: INSU100I4 SQ (10:10)
[2020-04-30] MEDS ORDERED: ACET325T53 NG (10:10)
[2020-04-30] MEDS ORDERED: BISA10SU61 RC (10:10)
[2020-04-30] MEDS ORDERED: NUT.237L31 GT (10:10)
[2020-04-30] MEDS ORDERED: NA P133E RC (10:10)
[2020-04-30] MEDS ORDERED: ZINC1CAP3 NG (10:10)
[2020-04-30] MEDS ORDERED: MAGN400O6 NG (10:10)
[2020-04-30 10:15] LABS: CARBON DIOXIDE 30 mmol/L (21-32); CHLORIDE 119 mmol/L (98-107); CREATININE 1.8 mg/dL (0.6-1.3); GLUCOSE 122 mg/dL (74-106); POTASSIUM 4.2 mmol/L (3.5-5.1); SODIUM SERUM 155 mmol/L (136-145); UREA NITROGEN, BLOOD 57 mg/dL (7-18)
[2020-04-30 10:17] LABS: SERUM AMMONIA 12 umol/L (11-32)
[2020-04-30 10:21] LABS: ALANINE AMINOTRANSFERASE 13 U/L (12-78); ALBUMIN 1.5 g/dL (3.4-5.0); ALKALINE PHOSPHATASE 76 U/L (46-116); ASPARTATE AMINOTRANSFERASE 21 U/L (15-37); BILIRUBIN,DIRECT 0.1 mg/dL (0.0-0.2); BILIRUBIN,TOTAL 0.3 mg/dL (0.2-1.0); TOTAL PROTEIN, SERUM 6.2 g/dL (6.4-8.2)
--- NOTE | 2020-04-30 10:34 | NUR ---
NAZANIN CALLED ITS ROMARIO.
[2020-04-30] MEDS ORDERED: ENOXAPARIN SODIUM 30 MG/0.3 ML DISP.SYRIN SQ SCH ×2 (11:30→12:00)
[2020-04-30] MEDS ORDERED: Z GUARD REMEDY 2 OZ OINT TP PRN ×2 (11:30→12:00)
[2020-04-30] MEDS ORDERED: MAG HYDROX/AL HYDROX/SIMETH 30 ML UDC PO PRN ×2 (11:30→12:00)
[2020-04-30] MEDS ORDERED: INSULIN REGULAR, HUMAN 100 UNIT/ML 3 ML VIAL SQ PRN ×2 (11:30→12:00)
[2020-04-30] MEDS ORDERED: IV D5/0.45 NACL 1,000 ML IV SCH (11:30)
[2020-04-30] MEDS ORDERED: DEXTROSE 50%-WATER 50 ML DISP.SYRIN IV PRN ×3 (11:30→17:30)
[2020-04-30] MEDS ORDERED: MAGNESIUM HYDROXIDE 30 ML UDC PO PRN ×2 (11:30→12:00)
[2020-04-30] MEDS ORDERED: *INSULIN REGULAR(HUMULIN R)HUM 100 UNIT/ML VIAL SQ PRN ×2 (11:30→12:00)
[2020-04-30] MEDS ORDERED: HYDROCODONE/APAP 5/325MG 1 EACH TABLET PO PRN ×2 (11:30→12:00)
[2020-04-30] MEDS ORDERED: ACETAMINOPHEN 325 MG TABLET PO PRN ×2 (11:30→12:00)
[2020-04-30] MEDS ORDERED: ONDANSETRON HCL/PF 4 MG/2 ML VIAL IVP PRN ×2 (11:30→12:00)
[2020-04-30] MEDS ORDERED: CEFTRIAXONE 1 G in IV D5W 50 ML IV SCH (11:30)
[2020-04-30] MEDS ORDERED: IV 1/2NS 1000 ML 1,000 ML IV SCH (11:30)
--- NOTE | 2020-04-30 11:36 | NUR ---
report given to Estela MIRZA for kanu
--- NOTE | 2020-04-30 11:55 | NUR ---
wheeled patient via gurney accompanied by EMT. RN at bedside to assume care.
[2020-04-30] MEDS ORDERED: BLOOD SUGAR DIAGNOSTIC 1 EACH STRIP VI SCH ×2 (12:00→12:15)
[2020-04-30 12:53] VITALS: BP 123/86
--- NOTE | 2020-04-30 13:22 | NUR ---
FIELD HOCKEY COACH NOTE RECEIVED PATIENT FROM ER WITH DX G TUBE PLACEMENT UNDER CARE DR DOSS, ADMISSION ORDERS WILL F\U , PATENT IS SLEEPING BUT EASILY AROUSABLE TO TACITLY AND VERBAL STIMULI, BUT STILL CONFUSED ,UNABLE TO VERBALIZE NEEDS KNOWN ,PATIENT HAS HL ON LT AV INTACT AND FLUSHED WELL ,ON TELE MONITOR SR HR 61, BODY CHECK DONE ,VS TAKEN, BELONGING CHECKED , BED IN LOWEST AND LOCKED POSITION ,ON 4L OF O2 VIA SIMPLE MASK, WILL CONT TO MONITOR
[2020-04-30] MEDS: HEPARIN SODIUM, PORCINE 5000 UNITS/1 ML VIAL SQ SCH ×2 (13:55→21:37)
--- NOTE | 2020-04-30 14:01 | NUR ---
telecasting engineer note per dr reis order ok to do pcr covid test done ,sent to lab
[2020-04-30] MEDS: CEFTRIAXONE 1 G in IV D5W 50 ML IV SCH (14:06)
[2020-04-30] MEDS: IV D5/0.45 NACL 1,000 ML IV PRN (14:06)
[2020-04-30 16:00] VITALS: BP 137/64
[2020-04-30] MEDS: GLUCERNA 1.2 1,000 ML BOTTLE NG PRN (16:52)
[2020-04-30] MEDS: BLOOD SUGAR DIAGNOSTIC 1 EACH STRIP IN SCH (17:55)
--- NOTE | 2020-04-30 18:29 | NUR ---
RN CLOSING CLOSING NOTES: PT IN BED SLEEPING COMFORTABLY WITH NO SIGNS OF RESPIRATORY DISTRESS, SOB, OR ANY PAIN. PT IS ON RA O2 95%. PT IS A/O X1, SHE ONLY RESPONDS WHEN YOU CALL HER NAME BY SLIGHTLY OPENING HER EYES. PT WAS COUGHING SUCTION WAS DONE. IV LAC #18, PATENT, FLUSHED WELL. CONSENT OBTAINED BY TELEPHONE FROM PTS SON PATRICIA FOR PEG, ZACK, AND BLOOD TRANSFUSION. ALL SAFETY MEASURES MAINTAINED, CALL LIGHT WITHIN REACH. WILL ENDORSE TO THE PM NURSE FOR CONTINUATION OF CARE.
--- NOTE | 2020-04-30 19:30 | NUR ---
RN OPENING NOTES, PATIENT IN BED SLEEPING COMFORTABLY AT THIS TIME, NO SOB/ACUTE RESPIRATORY DISTRESS, OR S/S OF PAIN OR DISCOMFORT, NSR IN TELE MONITOR WITH HR IN LOWS 60S AT THIS TIME, IV LAC #18, PATENT AND INTACT, IVF INFUSING ORDERED, GT FEEDING INFUSING WELL AND PATIENT TOLERATED WELL, ALL SAFETY MEASURES MAINTAINED, CALL LIGHT WITHIN REACH, WILL CONTINUE TO MONITOR CLOSELY.
[2020-04-30 20:00] VITALS: BP 119/63
[2020-05-01] MEDS: IV D5/0.45 NACL 1,000 ML IV PRN ×2 (00:29→15:17)
[2020-05-01] MEDS: BLOOD SUGAR DIAGNOSTIC 1 EACH STRIP IN SCH ×5 (00:43→23:20)
[2020-05-01] MEDS: INSULIN REGULAR, HUMAN 100 UNIT/ML 3 ML VIAL SQ PRN ×4 (00:47→23:56)
[2020-05-01 02:00] VITALS: BP 124/68
--- NOTE | 2020-05-01 06:54 | NUR ---
RN CLOSING NOTES, PATIENT IN BED SLEEPING AT THIS TIME, AT ROOM AIR NO SOB/ACUTE RESPIRATORY DISTRESS, OR S/S OF PAIN OR DISCOMFORT, NSR IN TELE MONITOR CONT WITH HR IN LOWS 60S, IV LAC #18, PATENT AND INTACT, IVF INFUSING ORDERED, PATIENT TOLERATED WELL, GT FEEDING INFUSING WELL AND PATIENT TOLERATED WELL, ALL SAFETY MEASURES MAINTAINED, NO SIGNIFICANT CHANGE IN CONDITION DURING THE NIGHT, WITH STABLE VS CALL LIGHT WITHIN REACH, WILL ENDORSE CONTINUITY OF CARE TO ONCOMING NURSE.
--- NOTE | 2020-05-01 08:06 | NUR ---
WOUND CARE CONSULT: REVIEWED CHART, NURSING DOCUMENTATION AND PHOTOS WHICH INDICATE FOOT AND LOWER LEG WOUNDS WELL FULL THICKNESS SACRAL ULCER WITH NECROTIC TISSUE, PRESENT ON ADMISSION. 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 RECOMMEND SURGICAL AND DPM CONSULTS. DR VARGHESE LOPEZ AND DR JEONG NOTIFIED OF CONSULT REQUESTS. RECOMMENDATIONS MADE FOR SKIN PROTECTION AND WOUND CARE OF SACRAL WOUND. DISCUSSED WITH NURSING STAFF. DEFER TO DPM FOR LOWER EXTREMITIES. PT IS ON ISOFLEX LOW AIRLOSS BED. WILL SEE PRN. IN AGREEMENT WITH PLAN OF CARE.
[2020-05-01 08:10] LABS: CALCIUM, SERUM 7.9 mg/dL (8.5-10.1); CREATININE 1.3 mg/dL (0.6-1.3); MAGNESIUM 2.6 mg/dL (1.8-2.4); POTASSIUM 3.7 mmol/L (3.5-5.1)
[2020-05-01 08:20] LABS: BASOPHILS % (AUTO) 0.3 % (0.0-2.0); HEMATOCRIT 28 % (33-45); HEMOGLOBIN 8.6 g/dL (11.5-14.8); LYMPHOCYTES # (AUTO) 0.7 /CMM (0.8-4.8); LYMPHOCYTES % (AUTO) 7.4 % (20.0-44.0); MEAN CORPUSCULAR HGB CONC 31 g/dl (31.0-36.0); MEAN CORPUSCULAR VOLUME 92 fL (82-100); MONOCYTES # (AUTO) 0.3 /CMM (0.1-1.30); MONOCYTES % (AUTO) 3.1 % (2.0-12.0); NEUTROPHILS # (AUTO) 8.6 /CMM (1.8-8.9); NEUTROPHILS % (AUTO) 88.2 % (43.0-81.0); PLATELET COUNT (AUTO) 230 /CMM (150-450); RED BLOOD CELL COUNT(AUTO) 3.04 MIL/uL (4.0-5.2); WHITE BLOOD COUNT (AUTO) 9.7 K/uL (4.3-11.0)
--- NOTE | 2020-05-01 08:20 | NUR ---
SALBADOR RN OPENING NOTES RECEIVED PT IN BED . PT IS OBTUNDED. PT IS ON 4 L SAT 99%.NORMAL SINUS RHYTHM IN HER 60'S.PT IS ON NG TUBE FEEDING OF GLUCERNA 1.2 @ 20 ML/HR. LEFT AC D 51/2 NS @ 100 ML/HR. SAFETY MEASUREMENTS ARE IMPLEMENTED.BED IS IS IN THE LOWEST POSITION. RAILS ARE UP x2. CALL LIGHT WITHIN REACH. WILL CONTINUE TO MONITOR
[2020-05-01] MEDS: DAKINS QUARTER STRENGTH (0.125%) 480 ML BOTTLE TOP SCH (09:59)
[2020-05-01] MEDS: HEPARIN SODIUM, PORCINE 5000 UNITS/1 ML VIAL SQ SCH ×2 (10:00→21:18)
[2020-05-01] MEDS: CEFTRIAXONE 1 G in IV D5W 50 ML IV SCH (12:29)
[2020-05-01] MEDS ORDERED: DEXTROSE 50%-WATER 50 ML DISP.SYRIN IV PRN (13:00)
--- NOTE | 2020-05-01 13:07 | NUR ---
dr. reis notified bs 50,change coverage to mild sliding scale and increase ngt feeding to 45ml/hr.will continue to monitor.
--- NOTE | 2020-05-01 16:40 | NUR ---
SALBADOR RN NOTES EMI CALLED FROM [facility] THAT SHE HAS POSITIVE MRSA
--- NOTE | 2020-05-01 19:17 | NUR ---
SALBADOR RN CLOSING NOTES RECEIVED PT IN BED . PT IS OBTUNDED. PT IS ON 4 L SAT 99%.NORMAL SINUS RHYTHM IN HER 60'S.PT IS ON NG TUBE FEEDING OF GLUCERNA 1.2 @ 40 ML/HR. LEFT AC D 51/2 NS @ 100 ML/HR. SAFETY MEASUREMENTS ARE IMPLEMENTED.BED IS IS IN THE LOWEST POSITION. RAILS ARE UP x2. CALL LIGHT WITHIN REACH. WILL ENDORSE TO NIGHTSHIFT FOR ZURDO
--- NOTE | 2020-05-01 19:29 | NUR ---
HOOP COILER NOTE LAB CALLED AND INFORMED PT COVID RESULT IS INCONCLUSIVE NEED TO REPEAT THE TEST, INFORMED NURSE CARLOS TO RECOLLECT THE SPECIMEN.
--- NOTE | 2020-05-01 19:30 | NUR ---
RN NOTE RECEIVED PT IN BED, AROUSABLE TO TOUCH AND LIGHT PAIN. PATIENT IN NO S/SX OF ACUTE DISTRESS AT THIS TIME. PATIENT'S BREATHING IS EVEN AND UNLABORED. PATIENT IS ON 4 L OF OXYGEN VIA NC SATURATING >95%; TOLERATING WELL. PATIENT ON TELE MONITOR READING SR, HR IS 69. NASOGASTRIC TUBE IN PLACE WITH GLUCERNA 1.2 CRRENTLY AT 40 ML/HR. NOTED IV SITE ON LAC WITH D5 1/2 NS AT 100 ML/HR; PATENT AND FLUSHING WELL,NO S/S OF INFECTION OR INFILTRATION. DILLON CATH CONNECTED TO URINE BAG IN PLACE, DRAINING TO A CLEAR WARREN OUTPUT. SAFETY MEASURES IMPLEMENTED PER PROTOCOL. PATIENT BED ALARM IS ON. HEAD OF BED ELEVATED. BED IS LOCKED, IN LOWEST POSITION AND SIDE RAILS UP. CALL LIGHT WITHIN REACH OF THE PATIENT. WILL CONTINUE TO MONITOR AND REASSESS FOR ANY CHANGES.
[2020-05-01 20:00] VITALS: BP 134/65
--- NOTE | 2020-05-01 21:30 | NUR ---
RN NOTE SPECIMEN FOR REPEAT COVID19 SWAB COLLECTED AND SENT TO LAB. PATIENT TOLERATED THE PROCEDURE WELL.
--- NOTE | 2020-05-01 23:30 | NUR ---
RN NOTE NOTED NASO GASTRIC TUBE PULLED OUT COMPLETELY. TUBE FEEDING OF GLUCERNA 1.2 AT 40 ML/HR PLACED ON HOLD FOR NOW. PLACED PATIENT ON HIGH DRUMMOND'S, SALEM SUMP FR18 REINSERTED VIA RIGHT NARE BY DIVISIONAL STOREKEEPER, PLACEMENT AND RESIDUAL CHECKED, PATIENT TOLERATED THE PROCEDURE WELL. PATIENT IS VERY CONFUSED AND PULLS OUT LINES/NG TUBE. DR SHANNON WAS ADVISED AND ORDERS FOR STAT CXR TO CHECK NGT PLACEMENT AND ACUTE MEDICAL RESTRAINTS WERE OBTAINED. WILL CONTINUE TO MONITOR.
[2020-05-02] VITALS: BP 158/64
--- NOTE | 2020-05-02 00:33 | NUR ---
RN NOTE CXR RESULTED, NOTED NG TUBE TIP AT STOMACH PER REPORT SIGNED BY Valentino MARCELINO MD. RESUMED TUBE FEEDING OF GLUCERNA 1.2 AT 40 ML/HR. WILL CONTINUE TO MONITOR
[2020-05-02] MEDS: IV D5/0.45 NACL 1,000 ML IV PRN ×2 (01:08→14:41)
[2020-05-02 04:00] VITALS: BP 126/65
[2020-05-02] MEDS: BLOOD SUGAR DIAGNOSTIC 1 EACH STRIP IN SCH ×3 (05:43→17:48)
[2020-05-02 06:20] LABS: BASOPHILS % (AUTO) 0.3 % (0.0-2.0); EOSINOPHILS % (AUTO) 1.2 % (0.0-6.0); HEMATOCRIT 25 % (33-45); HEMOGLOBIN 7.9 g/dL (11.5-14.8); LYMPHOCYTES # (AUTO) 0.8 /CMM (0.8-4.8); LYMPHOCYTES % (AUTO) 8.5 % (20.0-44.0); MEAN CORPUSCULAR HGB CONC 32 g/dl (31.0-36.0); MEAN CORPUSCULAR VOLUME 90 fL (82-100); MONOCYTES # (AUTO) 0.3 /CMM (0.1-1.30); MONOCYTES % (AUTO) 3.3 % (2.0-12.0); NEUTROPHILS # (AUTO) 8.4 /CMM (1.8-8.9); NEUTROPHILS % (AUTO) 86.7 % (43.0-81.0); PLATELET COUNT (AUTO) 255 /CMM (150-450); RED BLOOD CELL COUNT(AUTO) 2.77 MIL/uL (4.0-5.2); WHITE BLOOD COUNT (AUTO) 9.7 K/uL (4.3-11.0)
[2020-05-02 07:05] LABS: CALCIUM, SERUM 7.4 mg/dL (8.5-10.1); CREATININE 1.3 mg/dL (0.6-1.3); MAGNESIUM 2.3 mg/dL (1.8-2.4); PHOSPHORUS 2.9 mg/dL (2.5-4.9); POTASSIUM 4.2 mmol/L (3.5-5.1)
[2020-05-02] MEDS: GLUCERNA 1.2 1,000 ML BOTTLE NG PRN (07:28)
--- NOTE | 2020-05-02 07:30 | NUR ---
RN/SALBADOR RECEIVED PATIENT IN BED. NO ACUTE DISTRESS NOTED. PATIENT ALERT & ORIENTED X1, WITH CONFUSION. PATIENT ON ROOM AIR, SATURATING WELL AT 100%. PATIENT ON LAND LEASES AND RENTALS MANAGER, SINUS RHYTHM NOTED. PATIENT LEFT ANTECUBITAL IV ACCESS IN PLACE, INTACT, PATENT, FLUSHED WELL. PATIENT NG TUBE IN PLACE, PATENT, FLUSHED WELL. PATIENT DILLON CATHETER IN PLACE, INTACT, PATENT, DRAINING TO GRAVITY. PATIENT SAFETY MAINTAINED. CALL LIGHT WITHIN REACH. WILL CONTINUE TO MONITOR.
[2020-05-02 08:00] VITALS: BP 144/70
[2020-05-02] MEDS: HEPARIN SODIUM, PORCINE 5000 UNITS/1 ML VIAL SQ SCH ×2 (08:03→21:23)
[2020-05-02] MEDS: DAKINS QUARTER STRENGTH (0.125%) 480 ML BOTTLE TOP SCH (08:03)
[2020-05-02] MEDS ORDERED: HALOPERIDOL LACTATE 10 MG/5 ML UDC PO PRN (11:00)
[2020-05-02] MEDS ORDERED: BISACODYL SUPP (10 MG) 10 MG/SUPP.RECT SUPP.RECT RC PRN (11:00)
[2020-05-02] MEDS: ASPIRIN EC 81 MG TABLET.DR PO SCH (11:10)
[2020-05-02 12:00] VITALS: BP 130/82
[2020-05-02] MEDS: HALOPERIDOL LACTATE 10 MG/5 ML UDC NG SCH ×2 (12:24→17:48)
[2020-05-02] MEDS: CEFTRIAXONE 1 G in IV D5W 50 ML IV SCH (12:24)
[2020-05-02] MEDS: INSULIN REGULAR, HUMAN 100 UNIT/ML 3 ML VIAL SQ PRN ×2 (12:42→18:14)
--- NOTE | 2020-05-02 14:45 | NUR ---
RN/SALBADOR PATIENT IN STABLE CONDITION. GAVE REPORT TO YUKI PONCE FOR CONTINUITY OF CARE
--- NOTE | 2020-05-02 14:46 | NUR ---
LENS MOLDER NOTES Received Patient resting in bed. Non-verbal. VS stable with no acute distress. Breathing even and unlabored on room air with no respiratory distress. Denies pain. No signs and symptoms of pain. Telemonitor in place and patent reading SR with HR-77. NG-Tube in place and patent with Glucerna 1.2 infusing at 45ml/hr. 18g PIV on LAC clean, intact, patent and flushing well with D51/2NS infusing at 50ml/hr. Guzmán Cath in place and patent with clear yellow output noted. Bilateral soft wrist restraints in place with clean, warm skin and radial pulses noted. Safety precautions in place. Bed locked and set to lowest position with side rails x 2 up. All needs rendered at this time. Call light within reach. Will continue to monitor.
[2020-05-02 16:00] VITALS: BP 133/76
--- NOTE | 2020-05-02 17:15 | NUR ---
PROFESSOR OF FORESTRY NOTES Patient in stable condition. Report given to Bhavna MIRZA for continuity of care.
[2020-05-02 20:00] VITALS: BP 120/50
--- NOTE | 2020-05-02 20:00 | NUR ---
RN OPENING NOTE PT RECEIVED IN BED RESPONSIVE TO LIGHT PAIN. PT IS ON RM SATING 97%. NO S/S OF DISTRESS. PT ON TELE MONITOR SHOWING SR HR IN 60s. PT HAS R NARE G TUBE RUNNING GEVITY 1.2 AT 45 ML. IT IS PATENT, NO RESIDUAL NOTED ,FLUSHES WELL, WOOSHING SOUND NOTED WHEN AUSCULTATED. SAFETY MEASURES IN PLACE HOB ELEVATED BED AT LOWEST POSITION, LOCKED, SIDE RAILS UP X2, CALL LIGHT IN REACH.
[2020-05-02] MEDS: MIRTAZAPINE 15 MG TABLET NG SCH (21:19)
[2020-05-02] MEDS: ATORVASTATIN 40 MG TABLET NG SCH (21:20)
[2020-05-03] VITALS: BP 101/50
[2020-05-03] MEDS: BLOOD SUGAR DIAGNOSTIC 1 EACH STRIP IN SCH ×4 (00:19→17:31)
[2020-05-03] MEDS: INSULIN REGULAR, HUMAN 100 UNIT/ML 3 ML VIAL SQ PRN ×3 (00:24→12:46)
[2020-05-03] MEDS: GLUCERNA 1.2 1,000 ML BOTTLE NG PRN (02:13)
[2020-05-03 04:00] VITALS: BP 104/59
--- NOTE | 2020-05-03 06:20 | NUR ---
RN CLOSING NOTE PT REMAINED STABLE DURING MY SHIFT AND TRANSFERRED TO 3 W FOR ZURDO.
[2020-05-03 06:29] LABS: BASOPHILS % (AUTO) 0.4 % (0.0-2.0); EOSINOPHILS % (AUTO) 1.1 % (0.0-6.0); HEMATOCRIT 24 % (33-45); HEMOGLOBIN 7.6 g/dL (11.5-14.8); LYMPHOCYTES # (AUTO) 0.8 /CMM (0.8-4.8); LYMPHOCYTES % (AUTO) 9.7 % (20.0-44.0); MEAN CORPUSCULAR HGB CONC 32 g/dl (31.0-36.0); MEAN CORPUSCULAR VOLUME 90 fL (82-100); MONOCYTES # (AUTO) 0.4 /CMM (0.1-1.30); MONOCYTES % (AUTO) 4.9 % (2.0-12.0); NEUTROPHILS # (AUTO) 7.2 /CMM (1.8-8.9); NEUTROPHILS % (AUTO) 83.9 % (43.0-81.0); PLATELET COUNT (AUTO) 278 /CMM (150-450); RED BLOOD CELL COUNT(AUTO) 2.66 MIL/uL (4.0-5.2); WHITE BLOOD COUNT (AUTO) 8.6 K/uL (4.3-11.0)
--- NOTE | 2020-05-03 06:40 | NUR ---
CLOTHING PATTERNMAKER NOTES PATIENT ARRIVED ON FLOOR AT 0625. PATIENT IN BED, AWAKE, ALERT AND ORIENTED X 1. BREATHING EVEN AND UNLABORED ON ROOM AIR. SHOWS NO SIGNS OF ACUTE RESPIRATORY DISTRESS, NO ACUTE PAIN. BILATERAL WRIST RESTRAINTS, NO SKIN TEAR, NO S/S OF POOR CIRCULATION. NG TUBE IN PLACE IN R NARES RUNNING GLUCERNA 1.2 AT 45ML/HR. NO RESIDUALS. F/C CLEAN DRY AND INTACT, FLOWING URINE. IV ON LAC 20G RUNNING D5 1/2 NS AT 50ML/HR. SHOWS NO SIGNS OF INFILTRATION, NO REDNESS. SAFETY PRECAUTIONS IN PLACE. BED IN LOWEST POSITION, LOCKED, AND CALL LIGHT KEPT WITHIN REACH. WILL ENDORSE TO ONCOMING NURSE.
[2020-05-03 06:46] LABS: CALCIUM, SERUM 7.3 mg/dL (8.5-10.1); CREATININE 1.3 mg/dL (0.6-1.3); POTASSIUM 4.8 mmol/L (3.5-5.1)
[2020-05-03 08:00] VITALS: BP 146/66
--- NOTE | 2020-05-03 08:00 | NUR ---
EQUITY TRADER NOTES Received Patient resting in bed. A/O x 1. VS stable with no acute distress. Breathing even and unlabored on room air with no respiratory distress. Denies pain. No signs and symptoms of pain. Telemonitor in place and patent reading SR with HR-70. NG-Tube in place and patent with Glucerna 1.2 infusing at 45ml/hr. 18g PIV on LAC clean, intact, patent and flushing well with D51/2NS infusing at 50ml/hr. Guzmán Cath in place and patent with clear yellow output noted. Bilateral soft wrist restraints in place with clean, warm skin and radial pulses noted. Safety precautions in place. Bed locked and set to lowest position with side rails x 2 up. All needs rendered at this time. Call light within reach. Will continue to monitor.
[2020-05-03] MEDS: FERROUS SULFATE (325 MG) 325 MG/TAB TABLET NG SCH (08:39)
[2020-05-03] MEDS: BENAZEPRIL HCL 20 MG TABLET NG SCH (08:40)
[2020-05-03] MEDS: PANTOPRAZOLE 40 MG/PACK PACK NG SCH (08:40)
[2020-05-03] MEDS: ASPIRIN EC 81 MG TABLET.DR PO SCH (08:40)
[2020-05-03] MEDS: HEPARIN SODIUM, PORCINE 5000 UNITS/1 ML VIAL SQ SCH ×2 (08:42→21:22)
[2020-05-03] MEDS: DAKINS QUARTER STRENGTH (0.125%) 480 ML BOTTLE TOP SCH (08:44)
[2020-05-03] MEDS: HALOPERIDOL LACTATE 10 MG/5 ML UDC NG SCH ×3 (08:49→17:19)
[2020-05-03] MEDS ORDERED: MAGNESIUM HYDROXIDE 30 ML UDC NG SCH (09:00)
[2020-05-03] MEDS: CEFTRIAXONE 1 G in IV D5W 50 ML IV SCH (12:46)
[2020-05-03 15:03] VITALS: BP 146/66
[2020-05-03 16:00] VITALS: BP 114/60
--- NOTE | 2020-05-03 18:55 | NUR ---
MS RN CLOSING NOTES Patient resting in bed. A/O x 1. VS stable with no acute distress. Breathing even and unlabored on room air with no respiratory distress. Denies pain. No signs and symptoms of pain. NG-Tube in place and patent with Glucerna 1.2 infusing at 45ml/hr. 18g PIV on LAC clean, intact, patent and flushing well with D51/2NS infusing at 50ml/hr. Guzmán Cath in place and patent with clear yellow output noted. Bilateral soft wrist restraints in place with clean, warm skin and radial pulses noted. Safety precautions in place. Bed locked and set to lowest position with side rails x 2 up. All needs rendered at this time. Call light within reach. Will endorse plan of care to oncoming shift.
[2020-05-03] MEDS: IV D5/0.45 NACL 1,000 ML IV PRN (19:13)
[2020-05-03 20:00] VITALS: BP 116/62
--- NOTE | 2020-05-03 20:05 | NUR ---
MS/TELE/RN PATIENT IS AWAKE, CONFUSED, NOT VERBALLY RESPONSIVE, APPEAR COMFORTABLE, NO SIGNS OF DISTRESS NOTED, NGT IN PLACE WITH FEEDING INFUSING, POSITIVE PLACEMENT NOTE, HOB ELEVATED, RIGHT SOFT WRIST RESTRAINT TO PREVENT PATIENT FROM PULLING OUT TUBES/LINES, WILL MONITOR.
[2020-05-03] MEDS: ATORVASTATIN 40 MG TABLET NG SCH (21:21)
[2020-05-03] MEDS: MIRTAZAPINE 15 MG TABLET NG SCH (21:21)
[2020-05-04] VITALS (7 sets, daily range): BP systolic 112–141; BP diastolic 49–74
[2020-05-04] MEDS: BLOOD SUGAR DIAGNOSTIC 1 EACH STRIP IN SCH ×4 (00:45→18:13)
--- NOTE | 2020-05-04 01:32 | NUR ---
MS/TELE/RN ACCU CHECK WAS DONE, BLOOD SPHAV=[id number], DID NOT GIVE INSULIN PATIENT IS NOW NPO FOR G TUBE PLACEMENT IN THE MORNING.
--- NOTE | 2020-05-04 02:13 | NUR ---
MS/TELE/RN PATIENT IS SLEEPING AT THIS TIME, APPEAR COMFORTABLE, NO SIGNS OF DISTRESS NOTED, WILL CONTINUE TO MONITOR.
[2020-05-04 06:46] LABS: BASOPHILS % (AUTO) 0.3 % (0.0-2.0); HEMATOCRIT 26 % (33-45); LYMPHOCYTES # (AUTO) 0.9 /CMM (0.8-4.8); LYMPHOCYTES % (AUTO) 12.2 % (20.0-44.0); MEAN CORPUSCULAR HGB CONC 31 g/dl (31.0-36.0); MEAN CORPUSCULAR VOLUME 93 fL (82-100); MONOCYTES # (AUTO) 0.5 /CMM (0.1-1.30); MONOCYTES % (AUTO) 6.5 % (2.0-12.0); NEUTROPHILS # (AUTO) 5.9 /CMM (1.8-8.9); PLATELET COUNT (AUTO) 280 /CMM (150-450); RED BLOOD CELL COUNT(AUTO) 2.79 MIL/uL (4.0-5.2); WHITE BLOOD COUNT (AUTO) 7.4 K/uL (4.3-11.0)
--- NOTE | 2020-05-04 06:49 | NUR ---
MS/TELE/RN PATIENT IS SLEEPING, APPEAR COMFORTABLE, NO DISTRESS NOTED, NO GTUBE FEEDING POST MIDNIGHT FOR GTUBE PLACEMENT TODAY. ALL NEEDS ATTENDED AT THIS TIME, WILL CONTINUE TO MONITOR.
[2020-05-04 07:06] LABS: CALCIUM, SERUM 7.7 mg/dL (8.5-10.1); CREATININE 1.2 mg/dL (0.6-1.3); POTASSIUM 4.7 mmol/L (3.5-5.1)
--- NOTE | 2020-05-04 07:30 | NUR ---
MS/RN OPENING NOTES Patient resting in bed, A/O x 1, non-verbal. No s/s of pain/discomfort noted. Breathing even and non-labored on RA, no SOB noted. No cardiac distress noted. NG-Tube in place, patent and intact, kept NPO for procedure today. IV access noted on L AC # 20 g, patent and intact, and running D5 1/2 NS @50 mls/hr. Guzmán cath in place, draining yellow output well. Bilateral soft wrist restraints in place with clean, intact, warm skin and radial pulses noted. Fall precautions maintained. Will continue with current plan of care.
[2020-05-04] MEDS: ASPIRIN EC 81 MG TABLET.DR PO SCH (08:01)
[2020-05-04] MEDS: PANTOPRAZOLE 40 MG/PACK PACK NG SCH (08:01)
[2020-05-04] MEDS: FERROUS SULFATE (325 MG) 325 MG/TAB TABLET NG SCH (08:01)
[2020-05-04] MEDS: BENAZEPRIL HCL 20 MG TABLET NG SCH (08:01)
[2020-05-04] MEDS: HALOPERIDOL LACTATE 10 MG/5 ML UDC NG SCH ×3 (08:01→17:36)
[2020-05-04] MEDS: HEPARIN SODIUM, PORCINE 5000 UNITS/1 ML VIAL SQ SCH ×2 (08:02→21:56)
[2020-05-04] MEDS ORDERED: CLOP75TA15 PO (09:33)
[2020-05-04] MEDS: DAKINS QUARTER STRENGTH (0.125%) 480 ML BOTTLE TOP SCH (09:47)
--- NOTE | 2020-05-04 15:45 | NUR ---
MS/RN NOTES Called and followed up pharmacy to bring clindamycin bag for patient. Addendum: 05/04/20 at 1616 by SHARRI BUSTILLO RN WRONG PATIENT
--- NOTE | 2020-05-04 16:16 | NUR ---
MS/RN NOTES Patient picked up for surgery via bed. VSS, no respiratory or cardiac distress noted, IV access on L AC #20 gauge, patent and intact, and flushing well. Left unit safely along with consents signed.
--- NOTE | 2020-05-04 17:30 | NUR ---
MS/RN NOTES Patient back from surgery, vitals signs taken. No complaints of pain/discomfort noted. No respiratory or cardiac distress noted. Assessed peg placement, patent and intact, with clean dry dressing noted. Applied abdominal binder. Post op orders carried out from Dr. Nath. Will continue to monitor patient for any changes of condition.
[2020-05-04] MEDS: IV D5/0.45 NACL 1,000 ML IV PRN (18:21)
--- NOTE | 2020-05-04 18:40 | NUR ---
MS/RN CLOSING NOTES Patient in bed, A/O x 1, responsive totactile and verbal stimulation with incomprehensible speech. Denies pain and discomfort at this time. No respiratory or cardiac distress noted. IV access noted on L AC # 20 g, patent and intact, and running D5 1/2 NS @50 mls/hr. Ugzmán cath in place, draining yellow output well. Bilateral soft wrist restraints in place with clean, intact, warm skin and radial pulses noted. G-tube and abdominal binder in place, patent and intact, no gastric residual noted. Fall precautions maintained. Will continue with current plan of care. Addendum: 05/04/20 at 1844 by SHARRI BUSTILLO RN Sensation from all peripheral extremities intact. Will endorse to night warehouse selector nurse.
[2020-05-04] MEDS ORDERED: GLUCERNA 1.2 1,000 ML BOTTLE NG PRN (19:00)
--- NOTE | 2020-05-04 20:37 | NUR ---
MS/TELE/RN ON INITIAL SHIFT ROUND AT 1930, PATIENT WAS ON BED SLEEPING, APPEAR COMFORTABLE, NO SIGN OF DISTRESS NOTED, CALL LIGHT IN REACH. WILL MONITOR.
[2020-05-04] MEDS: MIRTAZAPINE 15 MG TABLET NG SCH (21:54)
[2020-05-04] MEDS: ATORVASTATIN 40 MG TABLET NG SCH (21:54)
[2020-05-05] MEDS: BLOOD SUGAR DIAGNOSTIC 1 EACH STRIP IN SCH ×3 (00:13→12:09)
--- NOTE | 2020-05-05 04:50 | NUR ---
MS/TELE/RN MORNING CARE WAS DONE, TOTAL LINEN CARE RENDERED, WOUND CARE PER ORDER DONE, REPOSITIONED TO COMFORT, WILL CONTINUE TO MONITOR.
--- NOTE | 2020-05-05 06:05 | NUR ---
MS/TELE/RN PATIENT IS AWAKE, COMFORTABLE, NO DISTRESS NOTED, SLEPT GOOD THE WHOLE SHIFT, G TUBE FEEDING WAS STARTED AT 20 MLS/HR ORDERED, HOB ELEVATED, ALL NEEDS ATTENDED AT THIS TIME, WILL CONTINUE TO MONITOR.
--- NOTE | 2020-05-05 07:45 | NUR ---
MS RN OPENING NOTES PATIENT IS SLEEPING WITH NO SIGNS OF DISTRESS IN ROOM AIR. IV L AC#20G RUNNING D5 1/2 NS AT 50 MLS/HR. NO SIGNS OF DISCOMFORT. G-TUBE INTACT WITH FEEDING GLUCERNA AT 20 MLS/HR. DILLON CATHETER INTACT. SAFETY MEASURES ARE APPLIED BED IS LOCKED AND LOW POSITION, SIDE RAILS UP X 2 FOR SAFETY. CALL LIGHT WITHIN REACH WILL CONTINUE TO MONITOR.
[2020-05-05] MEDS ORDERED: GLUCERNA 1.2 1,000 ML BOTTLE NG PRN (08:00)
[2020-05-05] MEDS: PANTOPRAZOLE 40 MG/PACK PACK NG SCH (08:30)
[2020-05-05] MEDS: ASPIRIN EC 81 MG TABLET.DR PO SCH (08:30)
[2020-05-05] MEDS: BENAZEPRIL HCL 20 MG TABLET NG SCH (08:32)
[2020-05-05] MEDS: DAKINS QUARTER STRENGTH (0.125%) 480 ML BOTTLE TOP SCH (08:32)
[2020-05-05] MEDS: FERROUS SULFATE (325 MG) 325 MG/TAB TABLET NG SCH (08:32)
[2020-05-05 08:35] VITALS: BP 142/79
[2020-05-05] MEDS: HALOPERIDOL LACTATE 10 MG/5 ML UDC NG SCH (08:36)
[2020-05-05] MEDS: HEPARIN SODIUM, PORCINE 5000 UNITS/1 ML VIAL SQ SCH (08:38)
--- NOTE | 2020-05-05 11:00 | NUR ---
CHECKED FOR RESIDUAL TO INCREASE FEEDING, RESIDUAL WAS 5 INCREASED THE FEEDING BY 10 PATIENT WAS UNABLE TO TOLERATE NAUSEA AND VOMITING OCCURRED . FEEDING IS BACK TO 20 MLS/HR. WILL CONTINUE TO MONITOR.
--- NOTE | 2020-05-05 11:05 | NUR ---
GAVE REPORT TO ZIYAD FROM [facility] AND DISCHARGE INSTRUCTIONS.
--- NOTE | 2020-05-05 12:58 | NUR ---
PATIENT VITALS ARE WITHIN NORMAL LIMIT, NO SIGNS OF DISTRESS ON 3L CANNULA OXYGEN SATURATION 99%. NO SIGNS OF DISCOMFORT. DILLON CATHETER IN PLACE. G-TUBE INTACT. IV L AC#20G REMOVED WITH NO SIGNS OF BLEEDING AND COVERED. DISCHARGE PICTURES WERE TAKEN. DISCHARGE INSTRUCTIONS GIVEN TO AMBULANCE. PATIENT LEFT VIA GURNEY BY AMBULANCE.
== END 2020-05-05 13:30 | DRG 391 ==
LOC: ER 09:34 → MEDSG1 12:04 → TELE1 12:12 → TELE 05-03 06:33 → MED 05-03 11:00
PROVIDERS: ADMIT Internal Medicine; ATTEND Internal Medicine
PROC: 0DH63UZ Insertion of Feeding Device into Stomach, Percutaneous Approach (ICD-10-PCS; principal; 2020-05-04)
DX: R13.10 Dysphagia, unspecified (principal); N17.0 Acute kidney failure with tubular necrosis; I21.A1 Myocardial infarction type 2; E43 Unspecified severe protein-calorie malnutrition; G93.41 Metabolic encephalopathy; E87.0 Hyperosmolality and hypernatremia; N39.0 Urinary tract infection, site not specified; L97.429 Non-pressure chronic ulcer of left heel and midfoot with unspecified severity; L97.419 Non-pressure chronic ulcer of right heel and midfoot with unspecified severity; I50.30 Unspecified diastolic (congestive) heart failure; Z68.1 Body mass index [BMI] 19.9 or less, adult; F03.90 Unspecified dementia, unspecified severity, without behavioral disturbance, psychotic disturbance, mood disturbance, and anxiety; E11.22 Type 2 diabetes mellitus with diabetic chronic kidney disease; I13.10 Hypertensive heart and chronic kidney disease without heart failure, with stage 1 through stage 4 chronic kidney disease, or unspecified chronic kidney disease; N18.9 Chronic kidney disease, unspecified; Z86.73 Personal history of transient ischemic attack (TIA), and cerebral infarction without residual deficits; E87.5 Hyperkalemia; E11.621 Type 2 diabetes mellitus with foot ulcer; K21.9 Gastro-esophageal reflux disease without esophagitis; E86.1 Hypovolemia; F32.9 Major depressive disorder, single episode, unspecified; Z79.02 Long term (current) use of antithrombotics/antiplatelets; Z98.2 Presence of cerebrospinal fluid drainage device; K29.70 Gastritis, unspecified, without bleeding; Z79.4 Long term (current) use of insulin; D64.9 Anemia, unspecified; E88.09 Other disorders of plasma-protein metabolism, not elsewhere classified; Z79.84 Long term (current) use of oral hypoglycemic drugs; S31.000A Unspecified open wound of lower back and pelvis without penetration into retroperitoneum, initial encounter; X58.XXXA Exposure to other specified factors, initial encounter; Y93.9 Activity, unspecified; Y92.129 Unspecified place in nursing home as the place of occurrence of the external cause
CPT/HCPCS: 36415; 43246; 71045-TC; 80048-TC; 80076-TC; 81000-TC; 82140-TC; 82962-TC; 83605-TC; 83735-TC; 84100-TC; 84443-TC; 84484-TC; 85025-TC; 85730-TC; 86850-TC; 87040-TC; 87081-TC; 87086-TC; 93307-TC; A6253; A6403; G0378; J0690; J0696; J1644; J1815; J2704; J3490; J7060; U0003-CS